=== PATIENT | male | born 1955 | race Caucasian/White ===

== ENCOUNTER 2022-03-08 10:28 | Outpatient (REF) | payer OTHER, SELFPAY ==
--- NOTE | ~2022-03-08 | XR_ITS ---
EXAMINATION: XR SINUSES CLINICAL INFORMATION: Chronic sinus issues. Allergic rhinitis. COMPARISON: None TECHNIQUE: 3 views of the sinuses were obtained. FINDINGS: There is complete opacification of left maxillary and mild opacification of left frontal sinus. The rest of the paranasal sinus and mastoid air cells are well aerated. No bony abnormalities seen involving the sinuses or the orbits. XR/XR sinus min 3V IMPRESSION: Chronic left frontal and maxillary sinus inflammatory changes.
[2022-03-08 12:38] LABS: PSA,Total (Free>4and<10) 3.63 ng/mL (0.00-4.00)
== END 2022-03-08 10:29 | disposition home or self-care (01) ==
LOC: HO.XRAY 10:28
PROVIDERS: PCP Internal Medicine; Visit Provider Nurse Practitioner Family
DX: J30.9 Allergic rhinitis, unspecified (principal); Z12.5 Encounter for screening for malignant neoplasm of prostate
CPT/HCPCS: 36415; 70220; 84153

== ENCOUNTER 2022-05-16 07:10 | Outpatient (REF) | payer OTHER, SELFPAY ==
--- NOTE | ~2022-05-16 | CT_ITS ---
EXAMINATION: CT SINUS WITHOUT CONTRAST CLINICAL INFORMATION: Acute recurrent sinusitis. COMPARISON: X-ray sinuses 03/08/2022. TECHNIQUE: Axial 2 mm thin and reformatted 2 mm thin sagittal and coronal images of sinuses were obtained without contrast. This CT examination was performed using dose optimization techniques as appropriate, variously including the following: *Automated exposure control *Adjustment of mA and/or kV according to patient size (this includes techniques or standardized protocols for targeted exams where dose is matched to indication/reason for exam; i.e. extremities or head) *Use of iterative reconstruction technique DLP: 99 mGy-cm FINDINGS: There is complete opacification of left maxillary sinus. There is minimal mucoperiosteal thickening left anterior ethmoid and bilateral frontal sinuses. Right ethmoid and the sphenoid sinuses are aerated and clear. There is complete obliteration of left ostiomeatal complex from mucoperiosteal thickening. The left frontoethmoidal recess is obliterated from mucoperiosteal thickening. The right ostiomeatal complex and frontoethmoidal recess, drainage pathways are widely patent. The bony sinus amaya are intact. Visualized maxillofacial and nasal bones are normal. Bilateral optic globe, optic nerve and intraorbital soft tissues appear normal. The bony orbits are intact. There is minimal deviation of nasal septum to the left with a bony spur. The nasal cavity and nasopharyngeal airway is widely patent. Bilateral TM joints and the visualized mandible appears unremarkable. CT/CT sinus wo con IMPRESSION: Chronic left maxillary, left anterior ethmoid and bilateral frontal sinus inflammatory changes. There is obstructed left ostiomeatal and frontoethmoidal recess drainage pathways. No bony abnormality seen involving the sinuses.
== END 2022-05-16 07:11 | disposition home or self-care (01) ==
LOC: HO.CT 07:10
PROVIDERS: PCP Internal Medicine; Visit Provider Otolaryngology
DX: J01.91 Acute recurrent sinusitis, unspecified (principal); I33.0 Acute and subacute infective endocarditis
CPT/HCPCS: 70486

== ENCOUNTER 2022-11-06 07:36 | Outpatient (REF) | payer OTHER, SELFPAY ==
[2022-11-06 07:43] LABS: MANUAL DIFF FLAG NO
[2022-11-06 08:31] LABS: Basophils Absolute Auto 0.1 X10*3/uL (0.0-0.2); Basophils Percent Auto 0.7 % (0-2); Eosinophils Absolute Auto 0.4 X10*3/uL (0.0-0.4); Eosinophils Percent Auto 5.2 % (0-4); Hematocrit 39.5 % (42.0-52.0); Hemoglobin 13.5 g/dl (14.0-18.0); Imm Gran Abs Auto 0.04 X10*3/uL (0.00-0.03); Imm Gran Pct Auto 0.5 % (0.0-0.4); Lymphocytes Absolute Auto 2.6 X10*3/uL (1.2-4.9); Lymphocytes Percent Auto 35.8 % (20-40); Mean Corpuscular HGB Conc 34.2 g/dl (31.0-36.0); Mean Corpuscular Hemoglobin 32.1 pg (27.0-33.0); Mean Corpuscular Volume 93.8 fL (80.0-98.0); Mean Platelet Volume 9.5 fL (9.4-12.4); Monocytes Absolute Auto 0.9 X10*3/uL (0.1-1.2); Monocytes Percent Auto 12.1 % (2-11); Neutrophils Absolute Auto 3.3 x10*3/uL (2.0-8.3); Neutrophils Percent Auto 45.7 % (45-73); Platelet Count 206 X10*3/uL (160-400); Red Blood Count 4.21 X10*6/uL (4.60-5.80); Red Cell Distribution Width 12.2 % (11.0-16.0); White Blood Count 7.3 X10*3/uL (4.8-10.8)
[2022-11-06 09:09] LABS: Alanine Aminotransferase 25 U/L (0-40); Albumin Level 4.4 g/dL (3.5-5.0); Alkaline Phosphatase 64 U/L (39-117); Anion Gap 12 (12-20); Aspartate Amino Transferase 27 U/L (5-37); Bilirubin Total 1.5 mg/dL (0.0-1.0); Blood Urea Nitrogen 12 mg/dL (9-16); Calcium 9.6 mg/dL (8.4-10.2); Carbon Dioxide 25 mmol/L (22-29); Chloride 102 mmol/L (96-108); Cholesterol 243 mg/dL; Estimated Glomerular Filt Rate > 60; Glucose Fasting 83 mg/dL (60-99); HDL Cholesterol 67 mg/dL; LDL Cholesterol Calculated 156 mg/dl; Potassium 4.4 mmol/L (3.3-5.1); Sodium 135 mmol/L (135-145); Total Protein 7.6 g/dL (6.5-8.0); Triglycerides 104 mg/dL
[2022-11-06 09:27] LABS: Prostate Specific Antigen Scr 5.02 ng/mL (<0.05-4.0); Thyroid Stimulating Hormone 1.03 uIU/mL (0.32-4.0)
== END 2022-11-06 07:37 | disposition home or self-care (01) ==
LOC: HO.LAB 07:36
PROVIDERS: PCP Internal Medicine; Visit Provider Internal Medicine
DX: Z00.00 Encounter for general adult medical examination without abnormal findings (principal); Z12.5 Encounter for screening for malignant neoplasm of prostate; Z13.0 Encounter for screening for diseases of the blood and blood-forming organs and certain disorders involving the immune mechanism; E03.9 Hypothyroidism, unspecified; I10 Essential (primary) hypertension; E78.5 Hyperlipidemia, unspecified
CPT/HCPCS: 36415; 80053; 80061; 84153; 84443; 85025

== ENCOUNTER 2022-12-04 10:45 | Outpatient (REF) | payer OTHER, SELFPAY ==
--- NOTE | ~2022-12-04 | XR_ITS ---
EXAMINATION: XR CHEST CLINICAL INFORMATION: Cough. COMPARISON: None TECHNIQUE: 2 views of the chest were obtained. FINDINGS: No significant abnormality is noted involving the heart, lungs, mediastinum, bony thorax or soft tissues. XR/XR chest 2V IMPRESSION: Unremarkable chest examination.
== END 2022-12-04 10:46 | disposition home or self-care (01) ==
LOC: HO.HMGCX 10:45
PROVIDERS: PCP Internal Medicine; Visit Provider Internal Medicine
DX: R05.9 Cough, unspecified (principal)
CPT/HCPCS: 71046

== ENCOUNTER 2023-09-19 13:51 | Outpatient (AMB) | payer MEDICARE, SELFPAY ==
--- NOTE | 2023-09-19 14:38 | MHC.PC.OV ---
Vital Signs 09/19/23 14:41 Height 5 ft 10 in Weight 200 lb BMI 28.7 BP 120/80 Blood Pressure Location Lt brachial Position Sitting Pulse 61 Pulse Source Pulse Oximeter Pulse Oximetry (%) 98 Oxygen Delivery Method Room Air Intake Visit Reasons: Est Care/ HTN, Hypothyroidism Intake Note: Patient here to establish care. Allergies amlodipine Allergy (Severe, Verified 09/19/23 14:43) swelling Medication List - Last Reconciled 09/19/23 by MEL Rose hydrochlorothiazide 12.5 mg PO DAILY levothyroxine 150 mcg PO DAILY lisinopril 20 mg PO DAILY Tobacco use date assessed: 09/19/23 Fall risk assessment: No Falls in past year Last assessed Fall Risk: 09/19/23 Dental Screening Dental Screen Date: 09/19/23 Did you have a dental visit in the last 12 months?: Yes Did you have a dental problem in the last 6 months where you did not have access to dental care?: No Was dental information given to patient?: Patient has dentist HPI Est Care/ HTN, Hypothyroidism HPI Details New pt is here to establish care. HTN: Blood pressure is stable, managed with hydrochlorothiazide 12.5mg and lisinopril 20mg. Denies chest pain, shortness of breath, headache, dizziness, and blurred vision. Hypothyroid: Pt is currently taking levothyroxine 150mcg. Will order labs. Due for PSA, hx of elevation, will reorder. Pt does report nocturia, stating that he gets up every 3-4 hours to urinate. Prostate does feel enlarged today, will refer to urology. Denies weak stream, dribbling with urination, and incomplete bladder emptying. [facility] Medical History (Updated 09/19/23 @ 15:12 by MEL Rose) Hypertension Surgical History No pertinent past surgical history Family History Father No problems noted. Mother Gastric cancer Sister No problems noted. Son No problems noted. Son No problems noted. Daughter No problems noted. Brother No problems noted. Brother No problems noted. Brother No problems noted. Brother No problems noted. Social History Housing: House Alcohol intake: never Patient Tobacco Use Status: Never used Tobacco e-Cigarette/Vaping Use: Never Used Second Hand Smoke Exposure: No service: No Current occupational status: employed Cognitive needs: No Hearing needs: No Vision needs: No Questionnaire PHQ-9 Over the last 2 weeks, how often have you been bothered by any of the following problems? 1. Little interest or pleasure in doing things: not at all 2. Feeling down, depressed, or hopeless: not at all 3. Trouble falling or staying asleep, or sleeping too much: not at all 4. Feeling tired or having little energy: not at all 5. Poor appetite or overeating: not at all 6. Feeling bad about yourself - or that you are a failure or have let yourself or your family down: not at all 7. Trouble concentrating on things, such as reading the newspaper or watching television: not at all 8. Moving or speaking so slowly that other people could have noticed. Or the opposite - being so fidgety or restless that you have been moving around a lot more than usual: not at all 9. Thoughts that you would be better off or of hurting yourself in some way: not at all Total score: 0 Depression Screening Interpretation: Negative Depression Screening Done: Yes 13512 - PHQ-9 Billing: Yes Source: Developed by Drs. Sundar Wright, Natalee Wolfe, Artemio Reynoso and colleagues, with an educational som from [employer]. Thrive Questionnaire Date Thrive assessed: 09/19/23 I am a: Patient What is your living situation today?: I have a steady place to live Within the past 12 months, did the food you bought not last and you didn't have the money to get more?: Never true Within the past 12 months, did you worry whether your food would run out before you got money to buy more?: Never true Do you have trouble paying for medicines?: No Do you have trouble getting transportation to medical appointments?: No Do you have trouble paying your heating and electricity bill?: No Do you have trouble taking care of your child, family member or friend?: No Do you have trouble with day-to-day activities such as bathing, preparing meals, shopping, managing finances, etc.?: No Are you currently unemployed and looking for a job?: No Are you interested in more education?: No IGGY-7 AMB Questionnaire IGGY-7 Date IGGY - 7 assessed: 09/19/23 Feeling nervous, anxious, or on edge: 0 = Not at all Not being able to stop or control worryin = Not at all Worrying too much about different things: 0 = Not at all Trouble relaxin = Not at all Being so restless that it is hard to sit still: 0 = Not at all Becoming easily annoyed or irritable: 0 = Not at all Feeling afraid as if something awful might happen: 0 = Not at all Total IGGY-7 score (0-4 normal; 5-9 mild; 10-14 moderate; 15-21 severe): 0 Source: Developed by Drs. Sundar Wright, Natalee Wolfe, Artemio Reynoso and colleagues, with an educational som from [employer]. IGGY-7 Assessment Billing IGGY-7 Assessment Tool: IGGY-7 Assessment 47596 Review of Systems Const Reports as per HPI Physical exam (Primary Care) Vital Signs: Last Vital Signs Pulse 61 09/19/23 14:41 BP 120/80 09/19/23 14:41 Pulse Ox 98 09/19/23 14:41 Oxygen Delivery Method Room Air 09/19/23 14:41 BMI result Body Mass Index 28.7 Tobacco/Smoking Status: Tobacco use Status Tobacco use date assessed 09/19/23 09/19/23 14:47 Patient Tobacco Use Status Never used Tobacco 09/19/23 14:39 e-Cigarette/Vaping Use Never Used 09/19/23 14:39 PHQ-9: PHQ-9 Score PHQ-9: Total score 0 09/19/23 15:04 Depression Screening Interpretation: Negative Thrive Assessment: Date of Thrive Assessment Date Thrive assessed 09/19/23 09/19/23 14:52 Const General: cooperative Orientation/consciousness: patient oriented x3 Neck Neck: Yes normal visual inspection Resp Effort & Inspection: normal respiratory effort Auscultation: clear to auscultation bilaterally Cardio Rate: regular rate Rhythm: regular rhythm Heart sounds: S1 normal heart sound present and S2 normal heart sound present Other: AVINASH: prostate enlarged and indurated, no nodules palpated, smooth central groove Neuro General: patient oriented x3 Extrem Right lower extremity: no edema Left lower extremity: no edema Psych Appearance: grossly normal Mental Status: mental status grossly normal Speech and movement: Normal speech and movement present Affect: normal affect Attitude: cooperative Thought process: Normal thought process present Thought content: Normal thought content present Insight: Good insight present (Psych) Judgement: Good judgement present (Psych) Assessment and Plan Assessment & Plan (1) Hypertension: Code(s): I10 - Essential (primary) hypertension Plan: Labs ordered, continue current meds (2) Hypothyroidism: Code(s): E03.9 - Hypothyroidism, unspecified Plan: Labs ordered, continue current med (3) Elevated PSA: Code(s): R97.20 - Elevated prostate specific antigen [PSA] Plan: PSA ordered (4) Enlarged prostate: Code(s): N40.0 - Benign prostatic hyperplasia without lower urinary tract symptoms Plan: Referred to urology Plan The patient agreed to the use of a medical and scientific illustrator for this encounter. Scribed for ROSA MARIA Roman- by Martha Johnson medical and scientific illustrator, on 09/19/2023 at 15:00 EST. Orders: Orders Comprehensive [place]. Panel Fast Today E03.9 - Hypothyroidism, unspecified, I10 - Essential (primary) hypertension UA CC w/rflx Micro + Cult Today E03.9 - Hypothyroidism, unspecified, I10 - Essential (primary) hypertension Prostate Specific Antigen Scr Today R97.20 - Elevated prostate specific antigen [PSA] Complete Blood Count Auto Diff Today E03.9 - Hypothyroidism, unspecified, I10 - Essential (primary) hypertension TSH reflex Free T4 Today E03.9 - Hypothyroidism, unspecified, I10 - Essential (primary) hypertension Lipid Panel Today E03.9 - Hypothyroidism, unspecified, I10 - Essential (primary) hypertension Referrals Urology Referral N40.0 - Benign prostatic hyperplasia without lower urinary tract symptoms Coding Level of Care Code New Pt Level 3 (52589) Diagnoses Hypertension I10 Hypothyroidism E03.9 Elevated PSA R97.20 Enlarged prostate N40.0 Additional Codes IGGY-7 Assessment Billing - IGGY-7 Assessment Tool: IGGY-7 Assessment 21335 ([id number])
[2023-09-19 14:41] VITALS: BP 120/80; PULSE 61; O2SAT 98; BMI 28.7
== END 2023-09-19 15:22 | disposition home or self-care (01) ==
PROVIDERS: PCP Internal Medicine; Visit Provider Nurse Practitioner Family
DX: I10 Essential (primary) hypertension (principal); E03.9 Hypothyroidism, unspecified; R97.20 Elevated prostate specific antigen [PSA]; N40.0 Benign prostatic hyperplasia without lower urinary tract symptoms
CPT/HCPCS: 99203

== ENCOUNTER 2023-10-03 08:04 | Outpatient (REF) | payer MEDICARE, SELFPAY ==
[2023-10-03 11:34] LABS: MANUAL DIFF FLAG NO
[2023-10-03 11:36] LABS: Appearance Urine Clear; Color Urine Yellow; Glucose Urine UA Negative (Negative); Leukocyte Esterase Urine Negative (Negative); Nitrite Urine Negative (Negative); PH 6.5 (5.0-9.0); UMIC TRIGGER UACC YES; Urine Blood Small (1+) (Negative); Urine Ketones Negative (Negative); Urine Protein Negative (Neg-Trace)
[2023-10-03 11:41] LABS: Basophils Absolute Auto 0.1 X10*3/uL (0.0-0.2); Basophils Percent Auto 0.7 % (0-2); Eosinophils Absolute Auto 0.3 X10*3/uL (0.0-0.4); Eosinophils Percent Auto 4.2 % (0-4); Hematocrit 39.6 % (42.0-52.0); Hemoglobin 13.2 g/dl (14.0-18.0); Imm Gran Abs Auto 0.04 X10*3/uL (0.00-0.03); Imm Gran Pct Auto 0.6 % (0.0-0.4); Lymphocytes Absolute Auto 2.4 X10*3/uL (1.2-4.9); Lymphocytes Percent Auto 34.5 % (20-40); Mean Corpuscular HGB Conc 33.3 g/dl (31.0-36.0); Mean Corpuscular Hemoglobin 31.6 pg (27.0-33.0); Mean Corpuscular Volume 94.7 fL (80.0-98.0); Mean Platelet Volume 9.9 fL (9.4-12.4); Monocytes Absolute Auto 0.7 X10*3/uL (0.1-1.2); Monocytes Percent Auto 10.2 % (2-11); Neutrophils Absolute Auto 3.4 x10*3/uL (2.0-8.3); Neutrophils Percent Auto 49.8 % (45-73); Platelet Count 214 X10*3/uL (160-400); Red Blood Count 4.18 X10*6/uL (4.60-5.80); Red Cell Distribution Width 12.4 % (11.0-16.0); White Blood Count 6.9 X10*3/uL (4.8-10.8)
[2023-10-03 12:09] LABS: Alanine Aminotransferase 23 U/L (0-40); Albumin Level 4.1 g/dL (3.5-5.0); Alkaline Phosphatase 62 U/L (39-117); Anion Gap 15 (12-20); Aspartate Amino Transferase 25 U/L (5-37); Bilirubin Total 1.2 mg/dL (0.0-1.0); Blood Urea Nitrogen 14 mg/dL (9-16); Calcium 9.2 mg/dL (8.4-10.2); Carbon Dioxide 25 mmol/L (22-29); Chloride 102 mmol/L (96-108); Cholesterol 223 mg/dL (<200); Estimated Glomerular Filt Rate > 60; Glucose Fasting 85 mg/dL (60-99); HDL Cholesterol 64 mg/dL (>40); LDL Cholesterol Calculated 133 mg/dL (<100); Potassium 4.1 mmol/L (3.3-5.1); Sodium 138 mmol/L (135-145); Total Protein 7.6 g/dL (6.5-8.0); Triglycerides 130 mg/dL (<150)
[2023-10-03 12:12] LABS: Bacteria Urine None Seen (None Seen); Hyaline Casts Urine 0-2 /LPF (0-2); Squamous Epithelial Cell Urine 0-2 /HPF (0-2); WBC Urine 0-5 /HPF (0-5)
[2023-10-03 12:16] LABS: TSH reflex Free T4 2.07 uIU/mL (0.32-4.0)
[2023-10-03 12:18] LABS: Prostate Specific Antigen Scr 4.71 ng/mL (<0.05-4.0)
== END 2023-10-03 08:05 | disposition home or self-care (01) ==
LOC: HO.HMGCLDS 08:04
PROVIDERS: PCP Nurse Practitioner Family; Visit Provider Nurse Practitioner Family
DX: I10 Essential (primary) hypertension (principal); E03.9 Hypothyroidism, unspecified; R97.20 Elevated prostate specific antigen [PSA]; Z12.5 Encounter for screening for malignant neoplasm of prostate
CPT/HCPCS: 36415; 80053; 80061; 81001; 84153; 84443; 85025

== ENCOUNTER 2023-11-01 08:00 | Outpatient (REF) | payer MEDICARE, SELFPAY ==
[2023-11-04 08:25] LABS: FIT Int Ctl YES; FIT1 NEGATIVE (NEGATIVE); FIT2 NEGATIVE (NEGATIVE)
[2023-11-04 08:26] LABS: FIT Lot M01203
== END 2023-11-01 08:01 | disposition home or self-care (01) ==
LOC: HO.HMGCLNP 08:00
PROVIDERS: Internal Medicine; PCP Nurse Practitioner Family; Visit Provider Nurse Practitioner Family
DX: R19.5 Other fecal abnormalities (principal)
CPT/HCPCS: 82274

== ENCOUNTER 2023-11-20 08:54 | Outpatient (AMB) | payer MEDICARE, SELFPAY ==
--- NOTE | 2023-11-20 09:05 | MHC.OFFVIS ---
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 Intake Note: New Patient presents for initial visit for BPH, Nocturia, and Elevated PSA Previous PSA: 2022-5.0, 2023-4.7 Urology Medications: none Blood Thinner: none Patient stated he is been having blood in the urine for more than 20 years PVR: 23ml Patient is a non smoker [employer] Required: No Accompanied by: Self / Same As Patient Allergies amlodipine Allergy (Severe, Verified 11/20/23 09:48) swelling Medication List - Last Reconciled 11/20/23 by ROSA MARIA Anderson- atorvastatin 10 mg PO BEDTIME 30 days hydrochlorothiazide 12.5 mg PO DAILY levothyroxine 150 mcg PO DAILY lisinopril 20 mg PO DAILY HPI HPI Comments History of Present Illness Details José Miguel is a very pleasant 68-year-old male patient of Dr. Bowen. He has a past medical history of hypertension. He presents to the office today as a new patient for elevated PSA. In discussion with the patient today reports following up with his PCP at which time recommendations were made for urology referral due to elevated PSA. These results reviewed with the patient today. 03/15--3.6 11/16--5.0 10/17--4.7 When asked he denies any urinary issues or concerns. He reports nocturia 2 times per night. However does not find this bothersome. Discussed at length potential causes for elevated PSA. Discussed obtaining redraw of PSA as well as retroperitoneal ultrasound for further assessment evaluation. In office urinalysis results reviewed with the patient today. 3+ microscopic hematuria however patient reports having previously followed up with Dr. Larson and undergoing workup for microscopic hematuria with no abnormal findings. He denies any previous smoking history and or workplace chemical exposure. PVR 23 mL. When asked he denies urinary urgency, urinary frequency, incontinence, nocturia, hematuria, dysuria, foul smelling urine, changes to urinary stream, flank pain, fever, and or chills. He is happy with his current voiding parameters. 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 AVINASH offered however patient had AVINASH with PCP and known nodules were noted the per patient. He reports PCP discussed enlarged prostate. He otherwise offers no other issues or concerns at this time. [facility] Medical History Hypertension Surgical History No pertinent past surgical history Family History Father No problems noted. Mother Gastric cancer Sister No problems noted. Son No problems noted. Son No problems noted. Daughter No problems noted. Brother No problems noted. Brother No problems noted. Brother No problems noted. Brother No problems noted. Social History Housing: House Alcohol intake: never Patient Tobacco Use Status: Never used Tobacco e-Cigarette/Vaping Use: Never Used Second Hand Smoke Exposure: No service: No Current occupational status: employed Cognitive needs: No Hearing needs: No Vision needs: No Review of Systems Const All systems reviewed & are unremarkable except as noted in HPI and below Physical Exam Const General: cooperative, healthy appearing, comfortable, no acute distress, well developed, alert and awake Orientation/consciousness: patient oriented x3 Limitations: no limitations HEENT Head: Yes normal to inspection, Yes normocephalic and Yes atraumatic Ears: hearing grossly normal bilaterally Eyes General: appearance normal, both eyes and all related structures Neck Neck: Yes normal visual inspection and Yes trachea midline Chest Chest palpation & inspection: normal inspection of the chest Resp Effort & Inspection: normal respiratory effort and able to speak in complete sentences Cardio Rate: regular rate GI Inspection: Yes normal to inspection General: Yes no CVA tenderness Back/Spine/Pelvis Back: no CVA tenderness Skin General skin exam: no rashes or lesions noted Neuro General: patient oriented x3 Extrem General: Yes normal to inspection Psych Appearance: grossly normal and well kempt Mental Status: mental status grossly normal Speech and movement: Normal speech and movement present and Clear speech present Affect: normal affect Attitude: cooperative Thought process: Normal thought process present Thought content: Normal thought content present Insight: Fair insight present (Psych) Judgement: Fair judgement present (Psych) Office Procedures Post Void Residual Post Residual Void Post Void Residual (PVR): 23 15098-Yosd Void Residual by ultrasound Results AMB Urinalysis, Automated UA Leukoctes 0 Seth/uL Last Edit by Roslyn Mejia CMA on 11/20/23 09:25 UA Nitrite Negative Last Edit by [facility], [facility] on 11/20/23 09:25 UA Urobilinogen 0.2 mg/dL Last Edit by [facility], [facility] on 11/20/23 09:25 UA Protein 0 mg/dL Last Edit by [facility], [facility] on 11/20/23 09:25 UA pH 6.0 Last Edit by [facility], [facility] on 11/20/23 09:25 UA Blood 200 Poncho/uL Last Edit by [facility], [facility] on 11/20/23 09:25 UA Specific [place] 1.015 Last Edit by [facility], [facility] on 11/20/23 09:25 UA Ketone Negative Last Edit by [facility], [facility] on 11/20/23 09:25 UA Bilirubin 0 mg/dL Last Edit by [facility], [facility] on 11/20/23 09:25 UA Glucose 0 mg/dL Last Edit by [facility], [facility] on 11/20/23 09:25 Results Reviewed Results Reviewed: Laboratory Last Values Urine pH (Auto) 6.0 11/20/23 09:09 Specific [place] (Auto) 1.015 11/20/23 09:09 Urine Protein (Auto) 0 mg/dL 11/20/23 09:09 Glucose (UA)(Auto) 0 mg/dL 11/20/23 09:09 Urine Ketones (Auto) Negative 11/20/23 09:09 Urine Blood (Auto) 200 Poncho/uL 11/20/23 09:09 Urine Nitrite (Auto) Negative 11/20/23 09:09 Urine Bilirubin (Auto) 0 mg/dL 11/20/23 09:09 Urine Urobilinogen (Auto) 0.2 mg/dL 11/20/23 09:09 Leukocyte Esterase (Auto) 0 Seth/uL 11/20/23 09:09 Assessment & Plan Assessment & Plan (1) Elevated PSA: Code(s): R97.20 - Elevated prostate specific antigen [PSA] (2) Microscopic hematuria: Code(s): R31.29 - Other microscopic hematuria Plan In office urinalysis results reviewed with the patient today. PVR 23 mL. Discussed at length potential causes of elevated PSA. Discussed at length potential causes of microscopic hematuria Will obtain retroperitoneal ultrasound for further assessment evaluation. Will obtain redraw of PSA with no sex the night before, no coffee morning of, and no heavy lifting 1-2 days prior to lab draw. He currently denies any bothersome urinary issues or concerns. Reports be happy with current voiding parameters. Follow-up in 1-2 months with imaging and lab to be completed prior; or sooner with any issues, concerns, and or questions. Orders: Orders AMB Urinalysis Automated Today R33.9 - Retention of urine, unspecified AMB Post Void Residual by ultrasound Today R33.9 - Retention of urine, unspecified US retroperitoneal comp Today R31.29 - Other microscopic hematuria, R97.20 - Elevated prostate specific antigen [PSA] Urine Cytology Today N39.0 - Urinary tract infection, site not specified, R31.29 - Other microscopic hematuria PSA,Total (Free>4and<10) Today R97.20 - Elevated prostate specific antigen [PSA] Patient Instructions: The patient had an opportunity to ask questions regarding the treatment plan. All questions were answered. Physical exam, labs, and imaging were discussed and reviewed in detail. As well as risks, benefits, and discussion of treatment choices. No major barriers to understanding were identified. The patient expressed understanding and agreement with the above treatment plan. The patient was made aware they should contact our office by phone for worsening of their current condition, the appearance of new symptoms, or with any questions or concerns. Compliance is encouraged with any medications and follow up testing that is ordered. It is a privilege to be allowed the opportunity to participate in? your urological care.? Again, if you have any questions or concerns If you have any questions or concerns please do not hesitate to contact me. The office is [phone]. This note is constructed using voice recognition software. While every effort has been made to ensure accuracy wireless technician errors may have been included. Yours sincerely, MEL Anderson Coding Level of Care Code New Pt Level 3 (78184) Diagnoses Elevated PSA R97.20 Microscopic hematuria R31.29 CPT Codes Post Residual Void - PVR CPT Code: 06692-[place] Void Residual by ultrasound ([id number])
== END 2023-11-20 09:47 | disposition home or self-care (01) ==
PROVIDERS: PCP Nurse Practitioner Family; Visit Provider Nurse Practitioner Family
DX: R97.20 Elevated prostate specific antigen [PSA] (principal); R31.29 Other microscopic hematuria
CPT/HCPCS: 99203

== ENCOUNTER 2023-11-20 08:54 | Outpatient (REF) | payer MEDICARE, SELFPAY ==
[2023-11-20 17:18] LABS: Urine Cytology See Pathology rpt
== END 2023-11-20 08:55 | disposition home or self-care (01) ==
LOC: HO.LAB 08:54
PROVIDERS: PCP Nurse Practitioner Family; Visit Provider Nurse Practitioner Family
DX: R31.29 Other microscopic hematuria (principal); N39.0 Urinary tract infection, site not specified; N40.0 Benign prostatic hyperplasia without lower urinary tract symptoms; R31.9 Hematuria, unspecified; R97.20 Elevated prostate specific antigen [PSA]; R33.9 Retention of urine, unspecified; Z79.899 Other long term (current) drug therapy
CPT/HCPCS: 51798; 81003; 88112; 99202

== ENCOUNTER 2023-12-05 09:39 | Outpatient (REF) | payer MEDICARE, SELFPAY ==
[2023-12-05 11:27] LABS: MANUAL DIFF FLAG NO
[2023-12-05 11:40] LABS: Basophils Percent Auto 0.6 % (0-2); Eosinophils Absolute Auto 0.3 X10*3/uL (0.0-0.4); Eosinophils Percent Auto 3.5 % (0-4); Hematocrit 38.1 % (42.0-52.0); Hemoglobin 13.1 g/dl (14.0-18.0); Imm Gran Abs Auto 0.03 X10*3/uL (0.00-0.03); Imm Gran Pct Auto 0.4 % (0.0-0.4); Lymphocytes Absolute Auto 2.2 X10*3/uL (1.2-4.9); Lymphocytes Percent Auto 30.9 % (20-40); Mean Corpuscular HGB Conc 34.4 g/dl (31.0-36.0); Mean Corpuscular Hemoglobin 32.3 pg (27.0-33.0); Mean Corpuscular Volume 94.1 fL (80.0-98.0); Mean Platelet Volume 9.7 fL (9.4-12.4); Monocytes Absolute Auto 0.7 X10*3/uL (0.1-1.2); Monocytes Percent Auto 10.1 % (2-11); Neutrophils Absolute Auto 3.9 x10*3/uL (2.0-8.3); Neutrophils Percent Auto 54.5 % (45-73); Platelet Count 227 X10*3/uL (160-400); Red Blood Count 4.05 X10*6/uL (4.60-5.80); Red Cell Distribution Width 12.2 % (11.0-16.0); White Blood Count 7.1 X10*3/uL (4.8-10.8)
[2023-12-05 12:31] LABS: Cholesterol 174 mg/dL (<200); HDL Cholesterol 67 mg/dL (>40); Iron 113 mcg/dL (45-160); LDL Cholesterol Calculated 86 mg/dL (<100); Percent Iron Saturation 36 % (15-50); Total Iron Binding Capacity 315 mcg/dL (228-428); Triglycerides 109 mg/dL (<150); Unsaturated Iron Binding 202 ug/dL
[2023-12-05 12:32] LABS: Ferritin 488 ng/mL (20-250)
[2023-12-05 12:44] LABS: PSA,Total (Free>4and<10) 5.32 ng/mL (0.00-4.00)
[2023-12-05 13:59] LABS: Appearance Urine Clear; Color Urine Yellow; Glucose Urine UA Negative (Negative); Leukocyte Esterase Urine Negative (Negative); Nitrite Urine Negative (Negative); UMIC TRIGGER UACC YES; Urine Blood Small (1+) (Negative); Urine Ketones Negative (Negative); Urine Protein Negative (Neg-Trace)
[2023-12-05 14:07] LABS: Bacteria Urine None Seen (None Seen); Hyaline Casts Urine 0-2 /LPF (0-2); Squamous Epithelial Cell Urine 0-2 /HPF (0-2); WBC Urine 0-5 /HPF (0-5)
[2023-12-05 14:58] LABS: Folate 13.5 ng/mL (> or = 4.0); Vitamin B12 426 pg/mL (200-900)
[2023-12-06 11:08] LABS: Free Prostate Spec Ag 0.8 ng/mL; Percent Free Prostate Spec Ag 15 % (calc) (>25); Prostate Specific Ag Total 5.5 ng/mL (< OR = 4.0)
[2023-12-06 14:04] LABS: Hematocrit 37.8 % (38.5-50.0); Hemoglobin 13.2 g/dL (13.2-17.1); MCH 32.9 pg (27.0-33.0); MCV 94.3 fL (80.0-100.0); RBC 4.01 Million/uL (4.20-5.80)
== END 2023-12-05 09:40 | disposition home or self-care (01) ==
LOC: HO.HMGCLDS 09:39
PROVIDERS: Nurse Practitioner Family; PCP Nurse Practitioner Family; Visit Provider Nurse Practitioner Family
DX: E78.5 Hyperlipidemia, unspecified (principal); D64.9 Anemia, unspecified; R97.20 Elevated prostate specific antigen [PSA]; I10 Essential (primary) hypertension; E03.9 Hypothyroidism, unspecified; R05.9 Cough, unspecified; Z12.5 Encounter for screening for malignant neoplasm of prostate
CPT/HCPCS: 36415; 80061; 81001; 82607; 82728; 82746; 83020; 83540; 84153; 84154; 85014; 85018; 85025; 85041

== ENCOUNTER 2024-01-14 09:51 | Outpatient (REF) | payer MEDICARE, SELFPAY ==
--- NOTE | ~2024-01-14 | US_ITS ---
EXAMINATION: US RETROPERITONEAL COMPLETE (RENAL) CLINICAL INFORMATION: Elevated prostate specific antigen (PSA). COMPARISON: CT abdomen and pelvis 07/28/2019. Renal ultrasound 05/22/2019. TECHNIQUE: Real-time imaging of the kidneys and bladder. FINDINGS: RIGHT KIDNEY: 10.2 x 6.1 x 5.9 cm (SAG x AP x TRV). The kidney is normal in size, contour, and echogenicity. Renal cortical thickness is normal. No calculi or focal parenchymal lesions. No hydronephrosis. There is a perihilar left renal artery branching pattern. LEFT KIDNEY: 10.2 x 5.8 x 5.1 cm (SAG x AP x TRV). The kidney is normal in size, contour, and echogenicity. Renal cortical thickness is normal. No calculi or focal parenchymal lesions. No hydronephrosis. BLADDER: Well distended. Bilateral ureteral jets are demonstrated. Prevoid bladder volume is 175 mL. Postvoid bladder volume is 70 mL. Mild bladder wall trabeculations are noted. OTHER: Prostate dimensions are 3.5 x 4.0 x 3.5 cm (volume 25.6 mL). US/US retroperitoneal comp IMPRESSION: 1. Unremarkable ultrasound appearance of the kidneys. 2. There is mild bladder wall hypertrophy. 3. There is a borderline increased postvoid residual volume.
== END 2024-01-14 09:52 | disposition home or self-care (01) ==
LOC: HO.HMGCX 09:51
PROVIDERS: PCP Nurse Practitioner Family; Visit Provider Nurse Practitioner Family
DX: R31.29 Other microscopic hematuria (principal); R97.20 Elevated prostate specific antigen [PSA]
CPT/HCPCS: 76770

== ENCOUNTER 2024-01-22 09:17 | Outpatient (AMB) | payer MEDICARE, SELFPAY ==
--- NOTE | 2024-01-22 09:46 | MHC.OFFVIS ---
Intake Visit Reasons: 2m/US/PSA(set) Intake Note: Patient presents for follow up visit for Elevated PSA and psa results PSA: 5.5 Urology Medications: none Blood Thinner: none Batch Or Continuous Still Operator Required: No Accompanied by: Self / Same As Patient Allergies amlodipine Allergy (Severe, Verified 01/22/24 10:03) swelling Medication List - Last Reconciled 01/22/24 by ROSA MARIA Anderson- atorvastatin 10 mg PO BEDTIME finasteride 5 mg PO DAILY 90 days hydrochlorothiazide 12.5 mg PO DAILY levothyroxine 150 mcg PO DAILY lisinopril 20 mg PO DAILY HPI Comments Details: José Miguel is a very pleasant 68-year-old male patient of Dr. Bowen. He has a past medical history of hep C and hypertension. He presents to the office today for follow-up. Of note, patient was seen approximately 2 months ago as a new patient for elevated PSA at which time a redraw of PSA and retroperitoneal ultrasound were ordered for further assessment evaluation. These results were reviewed with the patient today. Bilateral kidneys with no hydronephrosis or lesions noted. The bladder is well distended. Bilateral ureteral jets are demonstrated. Pre void bladder volume is approximately 175 mL. Postvoid bladder volume is approximately 70 mL. Mild bladder wall trabeculations are noted. Prostate volume is approximately 26 mL. PSAs are as noted and trended below. 03/15 3.6, 11/16 5.0, 10/17 4.7, 12/15 5.5 % free PSA 15% PCPT risk calculator results reviewed with the patient today. 65% chance prostate biopsy is negative, 25% chance of low-grade prostate cancer, and 10% chance of high-grade prostate cancer. When asked he denies any urinary issues or concerns. He reports nocturia 2 times per night. However does not find this bothersome. Discussed at length potential causes for elevated PSA. In office urinalysis results reviewed with the patient today. 3+ microscopic hematuria however patient reports having previously followed up with Dr. Larson and undergoing workup for microscopic hematuria with no abnormal findings. Discussed urine cytology from last office visit 11/17 atypical urothelial cells. He denies any previous smoking history and or workplace chemical exposure. When asked he denies urinary urgency, urinary frequency, incontinence, nocturia, hematuria, dysuria, foul smelling urine, changes to urinary stream, flank pain, fever, and or chills. He is happy with his current voiding parameters. AVINASH offered however patient had AVINASH with PCP and known nodules were noted the per patient. He reports PCP discussed enlarged prostate. He otherwise offers no other issues or concerns at this time. [facility] Medical History Hepatitis C Hypertension Surgical History No pertinent past surgical history Family History Father No problems noted. Mother Gastric cancer Sister No problems noted. Son No problems noted. Son No problems noted. Daughter No problems noted. Brother No problems noted. Brother No problems noted. Brother No problems noted. Brother No problems noted. Social History Housing: House Alcohol intake: never Patient Tobacco Use Status: Never used Tobacco e-Cigarette/Vaping Use: Never Used Second Hand Smoke Exposure: No service: No Current occupational status: employed Cognitive needs: No Hearing needs: No Vision needs: No Review of Systems Const All systems reviewed & are unremarkable except as noted in HPI and below Physical Exam Const General: cooperative, healthy appearing, comfortable, no acute distress, well developed, alert and awake Orientation/consciousness: patient oriented x3 Limitations: no limitations HEENT Head: Yes normal to inspection, Yes normocephalic and Yes atraumatic Ears: hearing grossly normal bilaterally Eyes General: appearance normal, both eyes and all related structures Neck Neck: Yes normal visual inspection and Yes trachea midline Chest Chest palpation & inspection: normal inspection of the chest Resp Effort & Inspection: normal respiratory effort and able to speak in complete sentences Cardio Rate: regular rate GI Inspection: Yes normal to inspection General: Yes no CVA tenderness Back/Spine/Pelvis Back: no CVA tenderness Skin General skin exam: no rashes or lesions noted Neuro General: patient oriented x3 Extrem General: Yes normal to inspection Psych Appearance: grossly normal and well kempt Mental Status: mental status grossly normal Speech and movement: Normal speech and movement present and Clear speech present Affect: normal affect Attitude: cooperative Thought process: Normal thought process present Thought content: Normal thought content present Insight: Fair insight present (Psych) Judgement: Fair judgement present (Psych) Results AMB Urinalysis, Automated UA Leukoctes 0 Seth/uL Last Edit by Keyona Flores on 01/22/24 09:56 UA Nitrite Negative Last Edit by Keyona Flores on 01/22/24 09:56 UA Urobilinogen 0.2 mg/dL Last Edit by Keyona Flores on 01/22/24 09:56 UA Protein 0 mg/dL Last Edit by Keyona Flores on 01/22/24 09:56 UA pH 6.0 Last Edit by Keyona Flores on 01/22/24 09:56 UA Blood 80 [place]/uL Last Edit by Keyona Flores on 01/22/24 09:56 UA Specific [place] 1.015 Last Edit by Keyona Flores on 01/22/24 09:56 UA Ketone Negative Last Edit by Keyona Flores on 01/22/24 09:56 UA Bilirubin 0 mg/dL Last Edit by Keyona Flores on 01/22/24 09:56 UA Glucose 0 mg/dL Last Edit by Keyona Flores on 01/22/24 09:56 Results Reviewed Results Reviewed: Laboratory Last Values Urine pH (Auto) 6.0 01/22/24 09:55 Specific [place] (Auto) 1.015 01/22/24 09:55 Urine Protein (Auto) 0 mg/dL 01/22/24 09:55 Glucose (UA)(Auto) 0 mg/dL 01/22/24 09:55 Urine Ketones (Auto) Negative 01/22/24 09:55 Urine Blood (Auto) 80 [place]/uL 01/22/24 09:55 Urine Nitrite (Auto) Negative 01/22/24 09:55 Urine Bilirubin (Auto) 0 mg/dL 01/22/24 09:55 Urine Urobilinogen (Auto) 0.2 mg/dL 01/22/24 09:55 Leukocyte Esterase (Auto) 0 Seth/uL 01/22/24 09:55 Date of Service: 01/14/24 EXAMINATION: US RETROPERITONEAL COMPLETE (RENAL) FINDINGS: RIGHT KIDNEY: 10.2 x 6.1 x 5.9 cm (SAG x AP x TRV). The kidney is normal in size, contour, and echogenicity. Renal cortical thickness is normal. No calculi or focal parenchymal lesions. No hydronephrosis. There is a perihilar left renal artery branching pattern. LEFT KIDNEY: 10.2 x 5.8 x 5.1 cm (SAG x AP x TRV). The kidney is normal in size, contour, and echogenicity. Renal cortical thickness is normal. No calculi or focal parenchymal lesions. No hydronephrosis. BLADDER: Well distended. Bilateral ureteral jets are demonstrated. Prevoid bladder volume is 175 mL. Postvoid bladder volume is 70 mL. Mild bladder wall trabeculations are noted. OTHER: Prostate dimensions are 3.5 x 4.0 x 3.5 cm (volume 25.6 mL). IMPRESSION: 1. Unremarkable ultrasound appearance of the kidneys. 2. There is mild bladder wall hypertrophy. 3. There is a borderline increased postvoid residual volume. Assessment & Plan Assessment & Plan (1) Elevated PSA: Code(s): R97.20 - Elevated prostate specific antigen [PSA] Category: Medical (2) Microscopic hematuria: Code(s): R31.29 - Other microscopic hematuria Category: Medical (3) Bladder trabeculation: Code(s): N32.89 - Other specified disorders of bladder Category: Medical Plan In office urinalysis results reviewed with the patient today; as noted above. Previous urine cytology results reviewed with the patient today; as noted above. Recent retroperitoneal ultrasound results reviewed with the patient today; as noted above. Recent PSA results reviewed with the patient today; as noted above. Discussed at length potential causes of elevated PSA; discussed further treatment options with MRI of the prostate verses surveillance monitoring versus prostate biopsy verses trial finasteride; risks and benefits of these interventions were discussed at length. Discussed at length potential causes of persistent microscopic hematuria; discussed further workup versus surveillance monitoring; risks and benefits of these interventions were discussed at length He currently denies any bothersome urinary issues or concerns. He reports be happy with current voiding parameters. Start finasteride 5 mg daily Will obtain PSA in 4 months. Follow-up in 4 months with lab to be completed prior and PVR at next office visit; or sooner with any issues, concerns, and or questions. Orders: Orders Urine Cytology Today R31.29 - Other microscopic hematuria AMB Urinalysis Automated Today Z13.9 - Encounter for screening, unspecified PSA,Total (Free>4and<10) 4 Months R97.20 - Elevated prostate specific antigen [PSA] Medications: New finasteride 5 mg PO DAILY 90 days 90 tabs 1RF N40.1 - Benign prostatic hyperplasia with lower urinary tract symptoms, R33.9 - Retention of urine, unspecified Patient Instructions: The patient had an opportunity to ask questions regarding the treatment plan. All questions were answered. Physical exam, labs, and imaging were discussed and reviewed in detail. As well as risks, benefits, and discussion of treatment choices. No major barriers to understanding were identified. The patient expressed understanding and agreement with the above treatment plan. The patient was made aware they should contact our office by phone for worsening of their current condition, the appearance of new symptoms, or with any questions or concerns. Compliance is encouraged with any medications and follow up testing that is ordered. It is a privilege to be allowed the opportunity to participate in? your urological care.? Again, if you have any questions or concerns If you have any questions or concerns please do not hesitate to contact me. The office is [phone]. This note is constructed using voice recognition software. While every effort has been made to ensure accuracy rigging engineer errors may have been included. Yours sincerely, MEL Anderson Coding Level of Care Code Est Pt Level 4 (03608) Diagnoses Elevated PSA R97.20 Microscopic hematuria R31.29 Bladder trabeculation N32.89
== END 2024-01-22 10:04 | disposition home or self-care (01) ==
PROVIDERS: PCP Nurse Practitioner Family; Visit Provider Nurse Practitioner Family
DX: R97.20 Elevated prostate specific antigen [PSA] (principal); R31.29 Other microscopic hematuria; N32.89 Other specified disorders of bladder
CPT/HCPCS: 99214

== ENCOUNTER 2024-01-22 09:17 | Outpatient (REF) | payer MEDICARE, SELFPAY ==
[2024-01-22 17:07] LABS: Urine Cytology See Pathology rpt
== END 2024-01-22 09:18 | disposition home or self-care (01) ==
LOC: HO.LNP 09:17
PROVIDERS: PCP Nurse Practitioner Family; Visit Provider Nurse Practitioner Family
DX: R31.29 Other microscopic hematuria (principal)
CPT/HCPCS: 81003; 88112; 99212

== ENCOUNTER 2024-02-01 09:28 | Outpatient (REF) | payer MEDICARE, SELFPAY ==
[2024-02-01 10:36] LABS: Appearance Urine Clear; Color Urine Yellow; Glucose Urine UA Negative (Negative); Leukocyte Esterase Urine Negative (Negative); Nitrite Urine Negative (Negative); PH 5.5 (5.0-9.0); UMIC TRIGGER UACC YES; Urine Blood Small (1+) (Negative); Urine Ketones Negative (Negative); Urine Protein Negative (Neg-Trace)
[2024-02-01 10:39] LABS: MANUAL DIFF FLAG NO
[2024-02-01 10:49] LABS: Basophils Absolute Auto 0.1 X10*3/uL (0.0-0.2); Basophils Percent Auto 0.9 % (0-2); Eosinophils Absolute Auto 0.2 X10*3/uL (0.0-0.4); Eosinophils Percent Auto 3.8 % (0-4); Hematocrit 41.6 % (42.0-52.0); Hemoglobin 14.1 g/dl (14.0-18.0); Imm Gran Abs Auto 0.05 X10*3/uL (0.00-0.03); Imm Gran Pct Auto 0.9 % (0.0-0.4); Lymphocytes Absolute Auto 2.1 X10*3/uL (1.2-4.9); Lymphocytes Percent Auto 35.9 % (20-40); Mean Corpuscular HGB Conc 33.9 g/dl (31.0-36.0); Mean Corpuscular Hemoglobin 32.3 pg (27.0-33.0); Mean Corpuscular Volume 95.2 fL (80.0-98.0); Mean Platelet Volume 9.4 fL (9.4-12.4); Monocytes Absolute Auto 0.6 X10*3/uL (0.1-1.2); Monocytes Percent Auto 10.8 % (2-11); Neutrophils Absolute Auto 2.8 x10*3/uL (2.0-8.3); Neutrophils Percent Auto 47.7 % (45-73); Platelet Count 213 X10*3/uL (160-400); Red Blood Count 4.37 X10*6/uL (4.60-5.80); White Blood Count 5.8 X10*3/uL (4.8-10.8)
[2024-02-01 10:50] LABS: Bacteria Urine None Seen (None Seen); Hyaline Casts Urine 0-2 /LPF (0-2); Squamous Epithelial Cell Urine 0-2 /HPF (0-2); WBC Urine 0-5 /HPF (0-5)
[2024-02-01 12:03] LABS: Alanine Aminotransferase 29 U/L (0-40); Albumin Level 4.6 g/dL (3.5-5.0); Alkaline Phosphatase 61 U/L (39-117); Anion Gap 17 (12-20); Aspartate Amino Transferase 33 U/L (5-37); Bilirubin Total 1.4 mg/dL (0.0-1.0); Blood Urea Nitrogen 13 mg/dL (9-16); Carbon Dioxide 24 mmol/L (22-29); Chloride 102 mmol/L (96-108); Estimated Glomerular Filt Rate > 60; Glucose Random 81 mg/dL (60-115); Potassium 4.7 mmol/L (3.3-5.1); Sodium 138 mmol/L (135-145); Total Protein 8.5 g/dL (6.5-8.0)
[2024-02-01 12:19] LABS: PSA,Total (Free>4and<10) 5.01 ng/mL (0.00-4.00)
[2024-02-04 11:24] LABS: Free Prostate Spec Ag 1.1 ng/mL; Percent Free Prostate Spec Ag 22 % (calc) (>25)
== END 2024-02-01 09:29 | disposition home or self-care (01) ==
LOC: HO.HMGCLDS 09:28
PROVIDERS: PCP Nurse Practitioner Family; Referring Provider Nurse Practitioner Family; Visit Provider Nurse Practitioner Family
DX: Z12.5 Encounter for screening for malignant neoplasm of prostate (principal); E03.9 Hypothyroidism, unspecified; I10 Essential (primary) hypertension; R97.20 Elevated prostate specific antigen [PSA]; D64.9 Anemia, unspecified
CPT/HCPCS: 36415; 80053; 81001; 84153; 84154; 85025

== ENCOUNTER 2024-03-05 08:53 | Outpatient (AMB) | payer MEDICARE, SELFPAY ==
--- NOTE | 2024-03-05 08:58 | A.OFFVIS_ITS ---
Intake Vital Signs 03/05/24 09:00 Height 5 ft 10 in Weight 204 lb BMI 29.3 BP 120/78 Blood Pressure Location Lt brachial Position Sitting Pulse 59 Pulse Source Pulse Oximeter Pulse Oximetry (%) 100 Oxygen Delivery Method Room Air Intake Visit Reasons: SWV G4039 Intake Note: pt is here for MWV Allergies amlodipine Allergy (Severe, Verified 03/05/24 10:55) swelling Medication List - Last Reconciled 03/05/24 by MEL Rose atorvastatin 10 mg PO BEDTIME finasteride 5 mg PO DAILY 90 days hydrochlorothiazide 12.5 mg PO DAILY levothyroxine 150 mcg PO DAILY lisinopril 20 mg PO DAILY sildenafil 25 mg PO DAILY PRN Do you need a note to return to daycare/school/sports/work: No HPI SWV G4039 HPI Details Pt is here for an SWV. Denies fever, chills, and dizziness. [place] of care not filled out. PPP will be scanned in chart and copy will be given to pt. [facility] Medical History Hepatitis C Hypertension Surgical History No pertinent past surgical history Family History Father No problems noted. Mother Gastric cancer Sister No problems noted. Son No problems noted. Son No problems noted. Daughter No problems noted. Brother No problems noted. Brother No problems noted. Brother No problems noted. Brother No problems noted. Social History Housing: House Alcohol intake: never Patient Tobacco Use Status: Never used Tobacco e-Cigarette/Vaping Use: Never Used Second Hand Smoke Exposure: No service: No Current occupational status: employed Cognitive needs: No Hearing needs: No Vision needs: No Questionnaire Medicare Wellness Checkup [age] What gender do you identify with?: male During the past 4 weeks, how much have you been bothered by emotional problems such as feeling anxious, depressed, irritable, sad or downhearted, and blue?: not at all During the past 4 weeks, has your physical & emotional health limited your social activities with family, friends, neighbors, or groups?: not at all During the past 4 weeks, how much bodily pain have you generally had?: no pain During the past 4 weeks, was someone available to help you if you needed & wanted help?: yes, as much as I wanted During the past 4 weeks, what was the hardest physical activity you could do for at least 2 minutes?: heavy Can you get to places out of walking distance without help? (For eg., can you travel alone on buses, taxis or drive your car?): Yes Can you go shopping for groceries or clothes without someone's help?: Yes Can you prepare your own meals?: Yes Can you do your housework without help?: Yes Because of any health problems, do you need the help of another person with your personal care needs such as eating, bathing, dressing or getting around the house?: No Can you handle your own money without help?: Yes During the past 4 weeks, how would you rate your health in general?: very good During the past 4 weeks how have things been going for you?: pretty well Are you having difficulties driving your car?: no Do you always fasten your seat belt when you are in a car?: yes, usually During past 4 weeks, have you been bothered by the following: never: Falling or dizzy when standing up, Trouble eating well?, Teeth or denture problems?, Problems using the telephone? and Tiredness or fatigue? and sometimes: Sexual problems? Have you fallen 2 or more times in the past year?: No Are you afraid of falling?: No Are you a smoker?: no During the past 4 weeks, how many drinks of wine, beer, or other alcoholic beverages did you have?: 6-9 drinks per week Do you exercise for about 20 minutes 3 or more times a week?: yes, all the time Have you been given information to help with the following?: yes: Hazards in your house that might hurt you? and yes: Keeping track of your medications? How often do you have trouble taking medicines the way you have been told to take them?: I always take medicine as prescribed How confident are you that you can control & manage most of your health problems?: very confident What is your race?: White Mini Mental State Exam (MMSE) Orientation What is the (year) (season) (date) (day) (month)?: year, season, date, day and month Where are we (state) (county) (town or city) (hospital) (floor)?: state, county and town or city Registration Name of 3 unrelated objects clearly and slowly, then ask patient to repeat all 3 of them. (1st repeat determines score. Make sure they can repeat all three): object 1, object 2 and object 3 Attention & Calculation (CHOOSE ONE) Spell WORLD backwards (DLROW): 5 letters Recall Ask patient to repeat the 3 items from question #3.: object 1, object 2 and object 3 Language Show patient a wristwatch & ask what it is. Repeat for pencil.: watch and pencil Ask the patient to repeat the phrase 'No ifs, ands, or buts' after you.: correct Ask the patient to 'take a piece of paper with their right hand' 'fold paper in half' 'place paper on floor': take paper in right hand, fold paper in half and place paper on floor Print the sentence 'CLOSE YOUR EYES' on a piece. If patient actually closes eyes then score.: followed written direction Give patient a blank piece of paper & ask to write a sentence. Score if it contains a noun & verb.: sentence contains subject and verb Ask patient to copy figure of intersecting pentagons exactly. Score if all 10 angles & 2 intersects are included.: all 10 angles present & 2 are intersected Score Score: 28 Activity of Daily Living Bathing - sponge bath, tub bath or shower: receives no assistance (gets in/out by self, if usual bathing means Dressing - getting clothes from closets & drawers, including inner/outer garments & fasteners.: gets clothes & gets completely dressed without help Toileting - going to the 'toilet room' for urine/bowel elimination & cleaning self/arranging clothes: goes to toilet room, cleans self, arranges clothes without help Transfer: moves in & out of bed and chair without help (may use support object) Continence: controls urination/bowel movements completely by self Feeding: feeds self without help Total Score: 0 Information obtained from: patient Using telephone: independent Traveling: independent Shopping: independent Housework: independent Taking medicine: independent Managing money: independent PHQ-9 Over the last 2 weeks, how often have you been bothered by any of the following problems? 1. Little interest or pleasure in doing things: not at all 2. Feeling down, depressed, or hopeless: not at all 3. Trouble falling or staying asleep, or sleeping too much: not at all 4. Feeling tired or having little energy: not at all 5. Poor appetite or overeating: not at all 6. Feeling bad about yourself - or that you are a failure or have let yourself or your family down: not at all 7. Trouble concentrating on things, such as reading the newspaper or watching television: not at all 8. Moving or speaking so slowly that other people could have noticed. Or the opposite - being so fidgety or restless that you have been moving around a lot more than usual: not at all 9. Thoughts that you would be better off or of hurting yourself in some way: not at all Total score: 0 Depression Screening Interpretation: Negative Depression Screening Done: Yes 62116 - PHQ-9 Billing: Yes Source: Developed by Drs. Sundar Wright, Natalee Wolfe, Artemio Reynoso and colleagues, with an educational som from [employer]. IGGY-7 AMB Questionnaire IGGY-7 Date IGGY - 7 assessed: 03/05/24 Feeling nervous, anxious, or on edge: 0 = Not at all Not being able to stop or control worryin = Not at all Worrying too much about different things: 0 = Not at all Trouble relaxin = Not at all Being so restless that it is hard to sit still: 0 = Not at all Becoming easily annoyed or irritable: 0 = Not at all Feeling afraid as if something awful might happen: 0 = Not at all Total IGGY-7 score (0-4 normal; 5-9 mild; 10-14 moderate; 15-21 severe): 0 Source: Developed by Drs. Sundar Wrgiht, Artemio Barrios and colleagues, with an educational som from [employer]. IGGY-7 Assessment Billing IGGY-7 Assessment Tool: IGGY-7 Assessment 01934 AUDIT C Alcohol Use Questionnaire (AUDIT-C) 1. How often do you have a drink containing alcohol?: Monthly or less 2. How many drinks containing alcohol do you have on a typical day when you are drinking?: 1 or 2 3. How often do you have six or more drinks on one occasion?: Never Total Score: 1 Score Reviewed/Action Taken: Yes Review of Systems Const Reports as per HPI Physical Exam Vital Signs: Last Vital Signs Pulse 59 03/05/24 09:00 BP 120/78 03/05/24 09:00 Pulse Ox 100 03/05/24 09:00 Oxygen Delivery Method Room Air 03/05/24 09:00 BMI result Body Mass Index 29.3 Const General: cooperative Orientation/consciousness: patient oriented x3 Neuro Other: - romberg, can tandem walk, can walk and turn, can rise from sitting to standing, passed whisper test General: patient oriented x3 Psych Appearance: grossly normal Mental Status: mental status grossly normal Speech and movement: Normal speech and movement present Affect: normal affect Attitude: cooperative Thought process: Normal thought process present Thought content: Normal thought content present Insight: Good insight present (Psych) Judgement: Good judgement present (Psych) Assessment & Plan Assessment & Plan (1) Screening for colon cancer: Code(s): Z12.11 - Encounter for screening for malignant neoplasm of colon (2) Encounter for annual wellness visit (AWV) in Medicare patient: Code(s): Z00.00 - Encounter for general adult medical examination without abnormal findings Plan The patient agreed to the use of a regional medical director for this encounter. Scribed for MEL Roman by Martha Johnson regional medical director, on 03/05/2024 at 09:25 EST. Orders: Referrals Gastroenterology Referral Z12.11 - Encounter for screening for malignant neoplasm of colon Medications: New sildenafil administer 30 minutes to 4 hours before activity 25 mg PO DAILY PRN 10 tabs 0RF sexual activity Quality Reporting (2019) Depression/Bipolar (159/160/161/177) PHQ-9: Total score: 0 Coding Level of Care Code Medicare Subsequent (G0439) Diagnoses Screening for colon cancer Z12.11 Encounter for annual wellness visit (AWV) in Medicare patient Z00.00 Additional Codes IGGY-7 Assessment Billing - IGGY-7 Assessment Tool: IGGY-7 Assessment 83746 ([id number]) Advance Care Planning Forms completed: Health Care Proxy (form given to pt), MOLST (form given to pt to fill out) and Living will (done, according to pt.)
[2024-03-05 09:00] VITALS: BP 120/78; PULSE 59; O2SAT 100; BMI 29.3
== END 2024-03-05 09:52 | disposition home or self-care (01) ==
PROVIDERS: PCP Nurse Practitioner Family; Visit Provider Nurse Practitioner Family
DX: Z00.00 Encounter for general adult medical examination without abnormal findings (principal); Z12.11 Encounter for screening for malignant neoplasm of colon
CPT/HCPCS: 99213; G0439

== ENCOUNTER 2024-05-01 10:02 | Outpatient (REF) | payer MEDICARE, SELFPAY | END 2024-05-01 10:03 | disposition home or self-care (01) | LOC: HO.HMGCLDS 10:02 | PROVIDERS: PCP Nurse Practitioner Family; Visit Provider Nurse Practitioner Family | DX: Z12.5 Encounter for screening for malignant neoplasm of prostate (principal); R97.20 Elevated prostate specific antigen [PSA] | CPT/HCPCS: 36415; 84153 ==

== ENCOUNTER 2024-05-23 09:12 | Outpatient (REF) | payer MEDICARE, SELFPAY ==
[2024-05-23 16:58] LABS: Urine Cytology See Pathology rpt
== END 2024-05-23 09:13 | disposition home or self-care (01) ==
LOC: HO.LNP 09:12
PROVIDERS: PCP Nurse Practitioner Family; Visit Provider Nurse Practitioner Family
DX: R31.29 Other microscopic hematuria (principal); R97.20 Elevated prostate specific antigen [PSA]; N40.0 Benign prostatic hyperplasia without lower urinary tract symptoms
CPT/HCPCS: 81003; 88112; 99212

== ENCOUNTER 2024-05-23 09:12 | Outpatient (AMB) | payer MEDICARE, SELFPAY ==
--- NOTE | 2024-05-23 09:29 | MHC.OFFVIS ---
Intake Visit Reasons: 4m/PSA Intake Note: Patient presents for follow up visit for Elevated PSA and psa results PSA: 2.10 Urology Medications: Finasteride and Sildenafil Blood Thinner: none Radiotelegrapher Required: No Accompanied by: Self / Same As Patient Allergies amlodipine Allergy (Severe, Verified 05/23/24 10:06) swelling Medication List - Last Reconciled 05/23/24 by ROSA MARIA Anderson- atorvastatin 10 mg PO BEDTIME finasteride 5 mg PO DAILY 90 days hydrochlorothiazide 12.5 mg PO DAILY levothyroxine 150 mcg PO DAILY lisinopril 20 mg PO DAILY sildenafil 25 mg PO DAILY PRN tadalafil (Cialis) 5 mg PO DAILY 90 days HPI Comments Details: José Miguel is a very pleasant 69-year-old male patient of Dr. Bowen. He has a past medical history of hep C and hypertension. He presents to the office today for follow-up. In discussion with the patient today reports to be doing and feeling well. He reports since his last office visit here he has had no bothersome urinary issues or concerns. He reports compliance with finasteride 5 mg daily. He reports noting issues with libido since starting finasteride. We discussed side effects of urological medications. Recent PSA results reviewed with the patient today as noted and trended below. Previous workup has included a retroperitoneal ultrasound 01/15 noting bilateral kidneys with no hydronephrosis or lesions noted. The bladder is well distended. Bilateral ureteral jets are demonstrated. Pre void bladder volume is approximately 175 mL. Postvoid bladder volume is approximately 70 mL. Mild bladder wall trabeculations are noted. Prostate volume is approximately 26 mL. 03/15 3.6, 11/16 5.0, 10/17 4.7, 12/15 5.5 % free PSA 15%, 05/17 2.1 We discussed decrease in PSA. When asked he denies any urinary issues or concerns. He reports nocturia 2 times per night however does not find this bothersome. In office urinalysis results reviewed with the patient today. 2+ microscopic hematuria however patient reports having previously followed up with Dr. Larson and undergoing workup for microscopic hematuria with no abnormal findings. Discussed urine cytology from last office visit 11/17 atypical urothelial cells and cytology 02/14 Negative for high-grade urothelial carcinoma. He denies any previous smoking history and or workplace chemical exposure. When asked he denies urinary urgency, urinary frequency, incontinence, visible/gross hematuria, dysuria, foul smelling urine, changes to urinary stream, flank pain, fever, and or chills. He is happy with his current voiding parameters. He otherwise offers no other issues or concerns at this time. [facility] Medical History Hepatitis C Hypertension Surgical History No pertinent past surgical history Family History Father No problems noted. Mother Gastric cancer Sister No problems noted. Son No problems noted. Son No problems noted. Daughter No problems noted. Brother No problems noted. Brother No problems noted. Brother No problems noted. Brother No problems noted. Social History Housing: House Alcohol intake: never Patient Tobacco Use Status: Never used Tobacco e-Cigarette/Vaping Use: Never Used Second Hand Smoke Exposure: No service: No Current occupational status: employed Cognitive needs: No Hearing needs: No Vision needs: No Review of Systems Const All systems reviewed & are unremarkable except as noted in HPI and below Physical Exam Const General: cooperative, healthy appearing, comfortable, no acute distress, well developed, alert and awake Orientation/consciousness: patient oriented x3 Limitations: no limitations HEENT Head: Yes normal to inspection, Yes normocephalic and Yes atraumatic Ears: hearing grossly normal bilaterally Eyes General: appearance normal, both eyes and all related structures Neck Neck: Yes normal visual inspection and Yes trachea midline Chest Chest palpation & inspection: normal inspection of the chest Resp Effort & Inspection: normal respiratory effort and able to speak in complete sentences Cardio Rate: regular rate GI Inspection: Yes normal to inspection General: Yes no CVA tenderness Back/Spine/Pelvis Back: no CVA tenderness Skin General skin exam: no rashes or lesions noted Neuro General: patient oriented x3 Extrem General: Yes normal to inspection Psych Appearance: grossly normal and well kempt Mental Status: mental status grossly normal Speech and movement: Normal speech and movement present and Clear speech present Affect: normal affect Attitude: cooperative Thought process: Normal thought process present Thought content: Normal thought content present Insight: Fair insight present (Psych) Judgement: Fair judgement present (Psych) Results AMB Urinalysis, Automated UA Leukoctes 0 Seth/uL Last Edit by Keyona Flores on 05/23/24 09:40 UA Nitrite Last Edit by Keyona Flores on 05/23/24 09:40 UA Urobilinogen 0.2 mg/dL Last Edit by Keyona Flores on 05/23/24 09:40 UA Protein 0 mg/dL Last Edit by Keyona Flores on 05/23/24 09:40 UA pH 6.0 Last Edit by Keyona Flores on 05/23/24 09:40 UA Blood 80 [place]/uL Last Edit by Keyona Flores on 05/23/24 09:40 UA Specific [place] 1.025 Last Edit by Keyona Flores on 05/23/24 09:40 UA Ketone Last Edit by Keyona Flores on 05/23/24 09:40 UA Bilirubin 0 mg/dL Last Edit by Keyona Flores on 05/23/24 09:40 UA Glucose 0 mg/dL Last Edit by Keyona Flores on 05/23/24 09:40 Results Reviewed Results Reviewed: Laboratory Last Values Urine pH (Auto) 6.0 05/23/24 09:34 Specific [place] (Auto) 1.025 05/23/24 09:34 Urine Protein (Auto) 0 mg/dL 05/23/24 09:34 Glucose (UA)(Auto) 0 mg/dL 05/23/24 09:34 Urine Blood (Auto) 80 [place]/uL 05/23/24 09:34 Urine Bilirubin (Auto) 0 mg/dL 05/23/24 09:34 Urine Urobilinogen (Auto) 0.2 mg/dL 05/23/24 09:34 Leukocyte Esterase (Auto) 0 Seth/uL 05/23/24 09:34 Assessment & Plan Assessment & Plan (1) Elevated PSA: Code(s): R97.20 - Elevated prostate specific antigen [PSA] Category: Medical (2) Enlarged prostate: Code(s): N40.0 - Benign prostatic hyperplasia without lower urinary tract symptoms Category: Medical (3) Microscopic hematuria: Code(s): R31.29 - Other microscopic hematuria Category: Medical Plan In office urinalysis results reviewed with the patient today; as noted above; will send for urine cytology. Discussed at length potential causes of microscopic hematuria; discussed further workup to include CT urogram, and in office cystoscopy; risks and benefits of these interventions were discussed. Will continue with surveillance monitoring per patient request. Recent PSA results reviewed with the patient today; as noted above. Patient currently denies any bothersome urinary issues or concerns. He reports be happy with current voiding parameters. Continue finasteride. Start Cialis 5 mg daily as discussed and prescribed. Discussed lifestyle modifications to assist with low libido/erectile dysfunction. Will obtain PSA in 4 months. Follow-up in 4 months with lab to be completed prior; or sooner with any issues, concerns, and or questions. Orders: Orders Prostate Specific Antigen 4 Months N40.0 - Benign prostatic hyperplasia without lower urinary tract symptoms, R97.20 - Elevated prostate specific antigen [PSA] AMB Urinalysis Automated Today Z13.9 - Encounter for screening, unspecified Medications: New tadalafil (Cialis) [id number] [facility] [place] [id number] Member [id number] 5 mg PO DAILY 90 days 90 tabs 2RF Patient Instructions: The patient had an opportunity to ask questions regarding the treatment plan. All questions were answered. Physical exam, labs, and imaging were discussed and reviewed in detail. As well as risks, benefits, and discussion of treatment choices. No major barriers to understanding were identified. The patient expressed understanding and agreement with the above treatment plan. The patient was made aware they should contact our office by phone for worsening of their current condition, the appearance of new symptoms, or with any questions or concerns. Compliance is encouraged with any medications and follow up testing that is ordered. It is a privilege to be allowed the opportunity to participate in? your urological care.? Again, if you have any questions or concerns If you have any questions or concerns please do not hesitate to contact me. The office is [phone]. This note is constructed using voice recognition software. While every effort has been made to ensure accuracy acoustical carpenter errors may have been included. Yours sincerely, MEL Anderson Coding Level of Care Code Est Pt Level 4 (62431) Diagnoses Elevated PSA R97.20 Enlarged prostate N40.0 Microscopic hematuria R31.29
== END 2024-05-23 10:05 | disposition home or self-care (01) ==
PROVIDERS: PCP Nurse Practitioner Family; Visit Provider Nurse Practitioner Family
DX: R97.20 Elevated prostate specific antigen [PSA] (principal); N40.0 Benign prostatic hyperplasia without lower urinary tract symptoms; R31.29 Other microscopic hematuria; Z13.9 Encounter for screening, unspecified
CPT/HCPCS: 99214

== ENCOUNTER 2024-09-04 09:36 | Outpatient (REF) | payer MEDICARE, SELFPAY ==
[2024-09-04 14:00] LABS: Prostate Specific Antigen 3.59 ng/mL (<0.05-4.0)
== END 2024-09-04 09:37 | disposition home or self-care (01) ==
LOC: HO.HMGCLDS 09:36
PROVIDERS: PCP Nurse Practitioner Family; Visit Provider Nurse Practitioner Family
DX: N40.0 Benign prostatic hyperplasia without lower urinary tract symptoms (principal); R97.20 Elevated prostate specific antigen [PSA]; Z12.5 Encounter for screening for malignant neoplasm of prostate
CPT/HCPCS: 36415; 84153

== ENCOUNTER 2024-09-22 08:39 | Outpatient (AMB) | payer MEDICARE, SELFPAY ==
--- NOTE | 2024-09-22 09:10 | A.OFFVIS_ITS ---
Intake Visit Reasons: 4m/PSA Intake Note: Patient presents for follow up visit for Elevated PSA and psa results PSA: 3.59 Urology Medications: Finasteride, sildenafil, tadalafil Blood Thinner: none Member Of [employer] Required: No Accompanied by: Self / Same As Patient Allergies amlodipine Allergy (Severe, Verified 09/22/24 09:47) swelling Medication List - Last Reconciled 09/22/24 by MEL Anderson atorvastatin 10 mg PO BEDTIME finasteride 5 mg PO DAILY 90 days hydrochlorothiazide 12.5 mg PO DAILY levothyroxine 150 mcg PO DAILY lisinopril 20 mg PO DAILY sildenafil 25 mg PO DAILY PRN tadalafil (Cialis) 5 mg PO DAILY 90 days HPI Comments Details: José Miguel is a very pleasant 69-year-old male patient of Dr. Bowen. He has a past medical history of hep C and hypertension. He presents to the office today for follow-up of his elevated PSA. In discussion with the patient today he reports to be doing and feeling well. Reports compliance with finasteride as prescribed. Recent PSA results reviewed with the patient today as noted and trended below. We discussed bump in PSA over the last 4 months and potential causes for this finding. Previous workup has included a retroperitoneal ultrasound 01/15 noting bilateral kidneys with no hydronephrosis or lesions noted. The bladder is well distended. Bilateral ureteral jets are demonstrated. Pre void bladder volume is approximately 175 mL. Postvoid bladder volume is approximately 70 mL. Mild bladder wall trabeculations are noted. Prostate volume is approximately 26 mL. 03/15 3.6, 11/16 5.0, 10/17 4.7, 12/15 5.5 % free PSA 15%, 05/17 2.1, 09/16 3.6 When asked he denies any urinary issues or concerns. He reports nocturia 2 times per night however does not find this bothersome. In office urinalysis results reviewed with the patient today. 2+ microscopic hematuria however patient reports having previously followed up with Dr. Larson and undergoing workup for microscopic hematuria with no abnormal findings. Discussed urine cytology from last office visit 11/17 atypical urothelial cells and cytology 02/14 and 06/17 Negative for high-grade urothelial carcinoma. He denies any previous smoking history and or workplace chemical exposure. When asked he denies urinary urgency, urinary frequency, incontinence, visible/gross hematuria, dysuria, foul smelling urine, changes to urinary stream, flank pain, fever, and or chills. He is happy with his current voiding parameters. He otherwise offers no other issues or concerns at this time. [facility] Medical History Hepatitis C Hypertension Surgical History No pertinent past surgical history Family History Father No problems noted. Mother Gastric cancer Sister No problems noted. Son No problems noted. Son No problems noted. Daughter No problems noted. Brother No problems noted. Brother No problems noted. Brother No problems noted. Brother No problems noted. Social History Housing: House Alcohol intake: never Patient Tobacco Use Status: Never used Tobacco e-Cigarette/Vaping Use: Never Used Second Hand Smoke Exposure: No service: No Current occupational status: employed Cognitive needs: No Hearing needs: No Vision needs: No Review of Systems Const All systems reviewed & are unremarkable except as noted in HPI and below Physical Exam Const General: cooperative, healthy appearing, comfortable, no acute distress, well developed, alert and awake Orientation/consciousness: patient oriented x3 Limitations: no limitations HEENT Head: Yes normal to inspection, Yes normocephalic and Yes atraumatic Ears: hearing grossly normal bilaterally Eyes General: appearance normal, both eyes and all related structures Neck Neck: Yes normal visual inspection and Yes trachea midline Chest Chest palpation & inspection: normal inspection of the chest Resp Effort & Inspection: normal respiratory effort and able to speak in complete sentences Cardio Rate: regular rate GI Inspection: Yes normal to inspection General: Yes no CVA tenderness Back/Spine/Pelvis Back: no CVA tenderness Skin General skin exam: no rashes or lesions noted Neuro General: patient oriented x3 Extrem General: Yes normal to inspection Psych Appearance: grossly normal and well kempt Mental Status: mental status grossly normal Speech and movement: Normal speech and movement present and Clear speech present Affect: normal affect Attitude: cooperative Thought process: Normal thought process present Thought content: Normal thought content present Insight: Fair insight present (Psych) Judgement: Fair judgement present (Psych) Results AMB Urinalysis, Automated UA Leukoctes 0 Seth/uL Last Edit by [employer] on 09/22/24 10:12 UA Nitrite Last Edit by [employer] on 09/22/24 10:12 UA Urobilinogen 0.2 mg/dL Last Edit by [employer] on 09/22/24 10:12 UA Protein 0 mg/dL Last Edit by [employer] on 09/22/24 10:12 UA pH 6.0 Last Edit by [employer] on 09/22/24 10:12 UA Blood 80 Poncho/uL Last Edit by [employer] on 09/22/24 10:12 UA Specific [place] 1.015 Last Edit by [employer] on 09/22/24 10:12 UA Ketone Last Edit by [employer] on 09/22/24 10:12 UA Bilirubin 0 mg/dL Last Edit by [employer] on 09/22/24 10:12 UA Glucose 0 mg/dL Last Edit by [employer] on 09/22/24 10:12 Results Reviewed Results Reviewed: Laboratory Last Values Urine pH (Auto) 6.0 09/22/24 10:02 Specific [place] (Auto) 1.015 09/22/24 10:02 Urine Protein (Auto) 0 mg/dL 09/22/24 10:02 Glucose (UA)(Auto) 0 mg/dL 09/22/24 10:02 Urine Blood (Auto) 80 [place]/uL 09/22/24 10:02 Urine Bilirubin (Auto) 0 mg/dL 09/22/24 10:02 Urine Urobilinogen (Auto) 0.2 mg/dL 09/22/24 10:02 Leukocyte Esterase (Auto) 0 Seth/uL 09/22/24 10:02 Assessment & Plan Assessment & Plan (1) Elevated PSA: Code(s): R97.20 - Elevated prostate specific antigen [PSA] Category: Medical (2) Enlarged prostate: Code(s): N40.0 - Benign prostatic hyperplasia without lower urinary tract symptoms Category: Medical Plan In office urinalysis results reviewed with the patient today; as noted above. Recent PSA results reviewed with the patient today; as noted above. We discussed potential causes of slight increase in PSA despite compliance with finasteride 5 mg daily as prescribed. Discussed further intervention to include MRI of the prostate verses prostate biopsy verses surveillance monitoring; risks and benefits of these interventions were discussed. Will obtain redraw of PSA with no sex the night before, no caffeine morning of, and no heavy lifting 1-2 days prior. Continue finasteride as discussed and prescribed. Follow-up in 4-8 weeks with redraw of PSA; or sooner with any issues, concerns, and or questions. Orders: Orders AMB Urinalysis Automated Today Z13.9 - Encounter for screening, unspecified Prostate Specific Antigen Today N40.0 - Benign prostatic hyperplasia without lower urinary tract symptoms, R97.20 - Elevated prostate specific antigen [PSA] Patient Instructions: The patient had an opportunity to ask questions regarding the treatment plan. All questions were answered. Physical exam, labs, and imaging were discussed and reviewed in detail. As well as risks, benefits, and discussion of treatment choices. No major barriers to understanding were identified. The patient expressed understanding and agreement with the above treatment plan. The patient was made aware they should contact our office by phone for worsening of their current condition, the appearance of new symptoms, or with any questions or concerns. Compliance is encouraged with any medications and follow up testing that is ordered. It is a privilege to be allowed the opportunity to participate in? your urological care.? Again, if you have any questions or concerns If you have any questions or concerns please do not hesitate to contact me. The office is [phone]. This note is constructed using voice recognition software. While every effort has been made to ensure accuracy slide fastener repairer errors may have been included. Yours sincerely, MEL Anderson Coding Level of Care Code Est Pt Level 3 (50932) Complex EM visit Add On G2211 Diagnoses Elevated PSA R97.20 Enlarged prostate N40.0
== END 2024-09-22 09:48 | disposition home or self-care (01) ==
PROVIDERS: PCP Nurse Practitioner Family; Visit Provider Nurse Practitioner Family
DX: R97.20 Elevated prostate specific antigen [PSA] (principal); N40.0 Benign prostatic hyperplasia without lower urinary tract symptoms; Z13.9 Encounter for screening, unspecified
CPT/HCPCS: 99213; G2211

== ENCOUNTER → 2024-09-22 08:39 | Outpatient (BNVA) | payer MEDICARE, SELFPAY | PROVIDERS: PCP Nurse Practitioner Family; Visit Provider Nurse Practitioner Family | DX: R97.20 Elevated prostate specific antigen [PSA] (principal); N40.0 Benign prostatic hyperplasia without lower urinary tract symptoms | CPT/HCPCS: 81003; 99212 ==

== ENCOUNTER 2024-11-06 07:55 | Outpatient (REF) | payer MEDICARE, SELFPAY ==
[2024-11-06 10:48] LABS: Prostate Specific Antigen 3.13 ng/mL (<0.05-4.0)
== END 2024-11-06 07:56 | disposition home or self-care (01) ==
LOC: HO.HMGCLDS 07:55
PROVIDERS: PCP Nurse Practitioner Family; Visit Provider Nurse Practitioner Family
DX: N40.0 Benign prostatic hyperplasia without lower urinary tract symptoms (principal); R97.20 Elevated prostate specific antigen [PSA]; Z12.5 Encounter for screening for malignant neoplasm of prostate
CPT/HCPCS: 36415; 84153

== ENCOUNTER 2024-11-11 09:18 | Outpatient (AMB) | payer MEDICARE, SELFPAY ==
--- NOTE | 2024-11-11 09:20 | A.OFFVIS_ITS ---
Vital Signs 11/11/24 09:21 Height 5 ft 10 in Weight 196 lb 3.382 oz BMI 28.2 BP 125/71 Blood Pressure Location Lt brachial Position Sitting Pulse 57 Intake Visit Reasons: Colonoscopy Screening Intake Note: José Miguel presents in the office as a new patient colonoscopy screening. CC: He states that he is just due for a colonoscopy. 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 male with past medical history of dyslipidemia, anemia, enlarged prostate, hypothyroidism, hypertension is here today for pre colonoscopy screening.? Patient was sent to us by his PCP.? Last colonoscopy in January of 2015. Patient reports that he had a normal colonoscopy.? Patient denies any gastrointestinal symptoms in the past or at present.? Denies any personal or family history of gastrointestinal disease, colon polyps, or CRC.? Denies history of difficulty with sedation or anesthesia in the past.? Negative for history of sleep apnea.? Denies any history of cardiac, renal, pulmonary, or hepatic disease.?? No history of infectious? diseases like hepatitis A, B, C, HIV or tuberculosis.? Patient is not on any anticoagulation COUNT INCLUDES [facility] Medical History Hepatitis C Hypertension Surgical History Hx of colonoscopy No pertinent past surgical history Family History Father No problems noted. Mother Gastric cancer Sister No problems noted. Son No problems noted. Son No problems noted. Daughter No problems noted. Brother No problems noted. Brother No problems noted. Brother No problems noted. Brother No problems noted. Social History Housing: House Alcohol intake: never Patient Tobacco Use Status: Never used Tobacco e-Cigarette/Vaping Use: Never Used Second Hand Smoke Exposure: No service: No Current occupational status: employed Cognitive needs: No Hearing needs: No Vision needs: No Review of Systems Const Denies weight gain and Denies weight loss ENT Reports no additional complaints, Denies dysphagia and Denies odynophagia Card Reports no additional complaints Resp Reports no additional complaints GI Denies abdominal pain, Denies belching, Denies melena, Denies bloating, Denies change in bowel habits, Denies dysphagia, Denies excessive flatus, Denies dyspepsia, Denies heartburn, Denies diarrhea, Denies loose stools, Denies nausea, Denies odynophagia and Denies vomiting Reports no additional complaints Musc Reports no additional complaints Neuro Reports no additional complaints Psych Reports no additional complaints Endo Reports no additional complaints Physical Exam Vital Signs: Last Vital Signs Pulse 57 11/11/24 09:21 BP 125/71 11/11/24 09:21 BMI result Body Mass Index 28.2 Const General: healthy appearing, no acute distress and well developed Nutritional Appearance: well nourished Orientation/consciousness: patient oriented x3 Resp Effort & Inspection: normal respiratory effort, able to speak in complete sentences, no tracheal deviation and symmetric chest movement Auscultation: clear to auscultation bilaterally Cardio Rate: regular rate GI Inspection: Yes normal to inspection and No distended Palpation (GI): Soft to palpation, not firm, nontender and No hepatosplenomegaly present Auscultation: normal bowel sounds General: Yes no CVA tenderness Back/Spine/Pelvis Back: no CVA tenderness Skin General skin exam: elasticity normal, turgor normal and dry skin Neuro General: patient oriented x3 Psych Appearance: grossly normal Mental Status: mental status grossly normal Assessment & Plan Assessment & Plan (1) Screening for colon cancer: Code(s): Z12.11 - Encounter for screening for malignant neoplasm of colon Category: Medical Plan Patient denies any GI, cardiac or respiratory symptoms.? Denies any issues with anesthesia in the past.? Denies any history of sleep apnea.? No history infectious diseases in the past or present.? Not on any anticoagulation therapy.? No family or personal history of colon cancer.? Patient denies melena, hematochezia, unintentional weight loss or ribbon like stools.? Discussed at length the pre-procedure,? prep, diet & medications as well as what to expect prior, during and after the procedure.?? Stressed the importance of good bowel prep.? Recommended the use of Vaseline or Calmoseptine OTC & baby wipes with bowel movements to promote comfort.? ?Patient verbalizes understanding and agrees to plan of care.? He was given the opportunity to ask questions and all questions answered.? We will see him after the procedure.? Medications: New bisacodyl (Dulcolax (bisacodyl)) take 4 tabs at noon the day before your colonoscopy 20 mg (4 x 5 mg) PO ONCE 1 day 4 tabs 0RF Z12.11 - Encounter for screening for malignant neoplasm of colon polyethylene glycol 3350 (Miralax) As directed by gastroenterology department at [facility] 238 grams PO ONCE 238 grams 0RF Z12.11 - Encounter for screening for malignant neoplasm of colon Coding Level of Care Code New Pt Level 3 (95513) Diagnoses Screening for colon cancer Z12.11 Time Spent (min) 40 Comment 30 minutes spent with patient and additional 10 minutes spent reviewing his records
[2024-11-11 09:21] VITALS: BP 125/71; PULSE 57; BMI 28.2
== END 2024-11-11 09:50 | disposition home or self-care (01) ==
PROVIDERS: PCP Nurse Practitioner Family; Visit Provider Nurse Practitioner Family
DX: Z01.818 Encounter for other preprocedural examination (principal); Z12.11 Encounter for screening for malignant neoplasm of colon
CPT/HCPCS: 99024

== ENCOUNTER → 2024-11-11 09:18 | Outpatient (BNVA) | payer MEDICARE, SELFPAY | PROVIDERS: PCP Nurse Practitioner Family; Visit Provider Nurse Practitioner Family | DX: Z01.818 Encounter for other preprocedural examination (principal) | CPT/HCPCS: 99212 ==

== ENCOUNTER 2024-11-25 08:37 | Outpatient (REF) | payer MEDICARE, SELFPAY ==
[2024-11-25 16:44] LABS: Urine Cytology See Pathology rpt
== END 2024-11-25 08:38 | disposition home or self-care (01) ==
LOC: HO.LNP 08:37
PROVIDERS: PCP Nurse Practitioner Family; Visit Provider Nurse Practitioner Family
DX: N40.0 Benign prostatic hyperplasia without lower urinary tract symptoms (principal); R97.20 Elevated prostate specific antigen [PSA]; R31.29 Other microscopic hematuria
CPT/HCPCS: 81003; 88112; 99212

== ENCOUNTER 2024-11-25 08:37 | Outpatient (AMB) | payer MEDICARE, SELFPAY ==
--- NOTE | 2024-11-25 08:52 | A.OFFVIS_ITS ---
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 Required: No Accompanied by: Self / Same As Patient Allergies amlodipine Allergy (Severe, Verified 11/25/24 10:00) swelling Medication List - Last Reconciled 11/25/24 by MEL Anderson atorvastatin 10 mg PO BEDTIME bisacodyl (Dulcolax (bisacodyl)) 20 mg (4 x 5 mg) PO ONCE 1 day finasteride 5 mg PO DAILY 90 days hydrochlorothiazide 12.5 mg PO DAILY levothyroxine 150 mcg PO DAILY lisinopril 20 mg PO DAILY polyethylene glycol 3350 (Miralax) 238 grams PO ONCE sildenafil 25 mg PO DAILY PRN tadalafil (Cialis) 5 mg PO DAILY 90 days HPI Comments Details: José Miguel is a very pleasant 69-year-old male patient of Dr. Bowen. He has a past medical history of hep C and hypertension. He presents to the office today for follow-up of his elevated PSA. In discussion with the patient today he reports to be doing and feeling well. He reports compliance with finasteride as prescribed. Recent PSA results reviewed with the patient today as noted and trended below. Previous workup has included a retroperitoneal ultrasound 01/15 noting bilateral kidneys with no hydronephrosis or lesions noted. The bladder is well distended. Bilateral ureteral jets are demonstrated. Pre void bladder volume is approximately 175 mL. Postvoid bladder volume is approximately 70 mL. Mild bladder wall trabeculations are noted. Prostate volume is approximately 26 mL. 03/15 3.6, 11/16 5.0, 10/17 4.7, 12/15 5.5 % free PSA 15%, 05/17 2.1, 09/16 3.6, 11/18 3.1 When asked he denies any urinary issues or concerns. He reports nocturia 2 times per night however does not find this bothersome. In office urinalysis results reviewed with the patient today. 2+ microscopic hematuria however patient reports having previously followed up with Dr. Larson and undergoing workup for microscopic hematuria with no abnormal findings. Discussed urine cytology from last office visit 11/17 atypical urothelial cells and cytology 02/14 and 06/17 Negative for high-grade urothelial carcinoma. He denies any previous smoking history and or workplace chemical exposure. When asked he denies urinary ur gency, urinary frequency, incontinence, visible/gross hematuria, dysuria, foul smelling urine, changes to urinary stream, flank pain, fever, and or chills. He is happy with his current voiding parameters. He otherwise offers no other issues or concerns at this time. [facility] Medical History Hepatitis C Hypertension Surgical History Hx of colonoscopy No pertinent past surgical history Family History Father No problems noted. Mother Gastric cancer Sister No problems noted. Son No problems noted. Son No problems noted. Daughter No problems noted. Brother No problems noted. Brother No problems noted. Brother No problems noted. Brother No problems noted. Social History Housing: House Alcohol intake: never Patient Tobacco Use Status: Never used Tobacco e-Cigarette/Vaping Use: Never Used Second Hand Smoke Exposure: No service: No Current occupational status: employed Cognitive needs: No Hearing needs: No Vision needs: No Review of Systems Const All systems reviewed & are unremarkable except as noted in HPI and below Physical Exam Const General: cooperative, healthy appearing, comfortable, no acute distress, well developed, alert and awake Orientation/consciousness: patient oriented x3 Limitations: no limitations HEENT Head: Yes normal to inspection, Yes normocephalic and Yes atraumatic Ears: hearing grossly normal bilaterally Eyes General: appearance normal, both eyes and all related structures Neck Neck: Yes normal visual inspection and Yes trachea midline Chest Chest palpation & inspection: normal inspection of the chest Resp Effort & Inspection: normal respiratory effort and able to speak in complete sentences Cardio Rate: regular rate GI Inspection: Yes normal to inspection General: Yes no CVA tenderness Back/Spine/Pelvis Back: no CVA tenderness Skin General skin exam: no rashes or lesions noted Neuro General: patient oriented x3 Extrem General: Yes normal to inspection Psych Appearance: grossly normal and well kempt Mental Status: mental status grossly normal Speech and movement: Normal speech and movement present and Clear speech present Affect: normal affect Attitude: cooperative Thought process: Normal thought process present Thought content: Normal thought content present Insight: Fair insight present (Psych) Judgement: Fair judgement present (Psych) Results AMB Urinalysis, Automated UA Leukoctes 0 Seth/uL Last Edit by Keyona Flores on 11/25/24 09:05 UA Nitrite Last Edit by Keyona Flores on 11/25/24 09:05 UA Urobilinogen 0.2 mg/dL Last Edit by Keyona Flores on 11/25/24 09:05 UA Protein 0 mg/dL Last Edit by Keyona Flores on 11/25/24 09:05 UA pH 6.0 Last Edit by Keyona Flores on 11/25/24 09:05 UA Blood 80 Poncho/uL Last Edit by Keyona Flores on 11/25/24 09:05 UA Specific [place] 1.010 Last Edit by Keyona Flores on 11/25/24 09:05 UA Ketone Last Edit by Keyona Flores on 11/25/24 09:05 UA Bilirubin 0 mg/dL Last Edit by [employer] Flores on 11/25/24 09:05 UA Glucose 0 mg/dL Last Edit by [employer] Flores on 11/25/24 09:05 Results Reviewed Results Reviewed: Laboratory Last Values Urine pH (Auto) 6.0 11/25/24 08:55 Specific [place] (Auto) 1.010 11/25/24 08:55 Urine Protein (Auto) 0 mg/dL 11/25/24 08:55 Glucose (UA)(Auto) 0 mg/dL 11/25/24 08:55 Urine Blood (Auto) 80 Poncho/uL 11/25/24 08:55 Urine Bilirubin (Auto) 0 mg/dL 11/25/24 08:55 Urine Urobilinogen (Auto) 0.2 mg/dL 11/25/24 08:55 Leukocyte Esterase (Auto) 0 Seth/uL 11/25/24 08:55 Assessment & Plan Assessment & Plan (1) Elevated PSA: Code(s): R97.20 - Elevated prostate specific antigen [PSA] Category: Medical (2) Enlarged prostate: Code(s): N40.0 - Benign prostatic hyperplasia without lower urinary tract symptoms Category: Medical Plan In office urinalysis results reviewed with the patient today; as noted above; will send for urine cytology Recent PSA results reviewed with the patient today; as noted above. Patient currently denies any bothersome urinary issues or concerns. He reports be happy with current voiding parameters. Continue finasteride as discussed and prescribed. Follow-up in 4 months with PSA to be completed prior; or sooner with any issues, concerns, and or questions. Orders: Orders AMB Urinalysis Automated Today Z13.9 - Encounter for screening, unspecified Prostate Specific Antigen 4 Months N40.0 - Benign prostatic hyperplasia without lower urinary tract symptoms, R97.20 - Elevated prostate specific antigen [PSA] Urine Cytology Today R31.29 - Other microscopic hematuria Patient Instructions: The patient had an opportunity to ask questions regarding the treatment plan. All questions were answered. Physical exam, labs, and imaging were discussed and reviewed in detail. As well as risks, benefits, and discussion of treatment choices. No major barriers to understanding were identified. The patient expressed understanding and agreement with the above treatment plan. The patient was made aware they should contact our office by phone for worsening of their current condition, the appearance of new symptoms, or with any questions or concerns. Compliance is encouraged with any medications and follow up testing that is ordered. It is a privilege to be allowed the opportunity to participate in? your urological care.? Again, if you have any questions or concerns If you have any questions or concerns please do not hesitate to contact me. The office is [phone]. This note is constructed using voice recognition software. While every effort has been made to ensure accuracy templer head errors may have been included. Yours sincerely, MEL Anderson Coding Level of Care Code Est Pt Level 3 (66296) Complex EM visit Add On G2211 Diagnoses Elevated PSA R97.20 Enlarged prostate N40.0
== END 2024-11-25 09:15 | disposition home or self-care (01) ==
PROVIDERS: PCP Nurse Practitioner Family; Visit Provider Nurse Practitioner Family
DX: R97.20 Elevated prostate specific antigen [PSA] (principal); N40.0 Benign prostatic hyperplasia without lower urinary tract symptoms; Z13.9 Encounter for screening, unspecified
CPT/HCPCS: 99213; G2211

== ENCOUNTER 2024-11-28 08:00 | Outpatient (AMB) | payer MEDICARE, SELFPAY ==
[2024-11-28 08:08] VITALS: BP 110/72; PULSE 89; TEMP 36.9; O2SAT 96; BMI 29.1
--- NOTE | 2024-11-28 08:08 | AM.OFFWIN_ITS ---
Intake Vital Signs 11/28/24 08:08 Height 5 ft 10 in Weight 203 lb BMI 29.1 BP 110/72 Blood Pressure Location Lt brachial Position Sitting Pulse 89 Pulse Source Pulse Oximeter Temp 98.4 F Temp Source Oral Pulse Oximetry (%) 96 Oxygen Delivery Method Room Air Intake Visit Reasons: EP severe cough, headache Patient Tobacco Use Status: Never used Tobacco Allergies amlodipine Allergy (Severe, Verified 11/25/24 10:00) swelling Do you need a note to return to daycare/school/sports/work: No HPI HPI Comments History of Present Illness Details History - The patient is a 69-year-old male pres enting with persistent cough and shortness of breath. - The cough began approximately two to t hree weeks ago, occasionally productive, with recent escalation in severity. - On Sunday, increased phlegm and res piratory distress occurred, intensifying shortness of breath observed over the last two days. - The patient denied fever, significant congestion, asthma, or COPD history. - Previous pneumonia occurrence approxim ately two years prior prompts current concern. - Recent home cold test returned negativ e, and the patient records oxygen saturation consistent but slightly reduced from personal baseline. - No associated ear or sinus discomfort or pain was mentioned during the consultation. Physical Exam General: Cooperative, healthy appearing, comfortable and no acute distress Orientation/consciousness: Patient oriented x3 Limitations: No limitations Head: Normal to inspection Ears: Hearing grossly normal bilaterally, external ears normal and TM's normal bilaterally Nose: Normal external nose present, Normal nares present and No nasal discharge present Face and sinus: Normal facial exam and Yes sinuses nontender Mouth: Normal oral and palatal mucosa present and moist mucous membranes Throat: Yes tonsils normal, Yes uvula midline. Posterior oropharynx erythema Eyes: Appearance normal, both eyes and all related structures Neck: Normal visual inspection Respiratory: Clear to auscultation bilaterally. Normal respiratory effort, able to speak in complete sentences, Actively coughing, no respiratory distress, not tachypneic, no tripod positioning and no use of accessory muscles Cardiovascular: Regular rate and rhythm. Normal S1 and S2 Skin: No rashes or lesions noted Neuro: Patient oriented x3 Extremities: Normal to inspection and Yes no clubbing, cyanosis or edema PFSH Medical History Hepatitis C Hypertension Surgical History Hx of colonoscopy No pertinent past surgical history Family History Father No problems noted. Mother Gastric cancer Sister No problems noted. Son No problems noted. Son No problems noted. Daughter No problems noted. Brother No problems noted. Brother No problems noted. Brother No problems noted. Brother No problems noted. Social History Housing: House Alcohol intake: never Patient Tobacco Use Status: Never used Tobacco e-Cigarette/Vaping Use: Never Used Second Hand Smoke Exposure: No service: No Current occupational status: employed Cognitive needs: No Hearing needs: No Vision needs: No Review of Systems Const All systems reviewed & are unremarkable except as noted in HPI and below Physical Exam Vital Signs: Last Vital Signs Temp 98.4 F 11/28/24 08:08 Pulse 89 11/28/24 08:08 BP 110/72 11/28/24 08:08 Pulse Ox 96 11/28/24 08:08 Oxygen Delivery Method Room Air 11/28/24 08:08 BMI result Body Mass Index 29.1 Assessment & Plan Assessment & Plan (1) URI, acute: Code(s): J06.9 - Acute upper respiratory infection, unspecified Plan: O2 sat 95%, pt feeling short of breath. I will perform diagnostic tests for influenza, COVID-19, and RSV and obtain a chest radiograph to evaluate for poten tial pneumonia due to symptom similarity to previous episodes. To address the patient's acute cough and shortness of breath, I will prescribe Tessalon Perles at night for cough suppression and an inhaler for symptomatic relief during coughing episodes or shortness of breath, suggesting two puffs every four to six hours. A decongestant and antihistamine regimen is recommended to assist with nasal congestion. I will follow up with test results to determine if antibiotic treatment is needed based on findings from the chest radiograph. Patient was informed and verbally consented to the use of an ambient scribe for clinic note documentation during this visit Orders: Orders SARS-CoV2/FLU/RSV Today R09.89 - Other specified symptoms and signs involving the circulatory and respiratory systems XR chest 2V Today R05.9 - Cough, unspecified Medications: New albuterol sulfate 90 mcg/actuation 2 puffs inhalation Q6H PRN 8.5 grams 0RF shortness of breath or wheezing or cough benzonatate 200 mg PO BEDTIME PRN 10 caps 0RF cough Coding Level of Care Code Est Pt Level 4 (51341) Diagnoses URI, acute J06.9
== END 2024-11-28 08:40 | disposition home or self-care (01) ==
PROVIDERS: PCP Nurse Practitioner Family; Visit Provider Physician Assistant
DX: J06.9 Acute upper respiratory infection, unspecified (principal)

== ENCOUNTER 2024-11-28 08:00 | Outpatient (REF) | payer MEDICARE, SELFPAY ==
[2024-11-28 12:28] LABS: Influenza A PCR POSITIVE (Negative); Influenza B PCR NEGATIVE (Negative); Resp Syncy Virus RNA Qual PCR NEGATIVE (Negative); SARS COV2 PCR INHOUSE NEGATIVE (Negative)
== END 2024-11-28 08:01 | disposition home or self-care (01) ==
LOC: HO.LAB 08:00
PROVIDERS: Physician Assistant; PCP Nurse Practitioner Family
DX: Z13.89 Encounter for screening for other disorder (principal)
CPT/HCPCS: 0241U

== ENCOUNTER 2024-11-28 08:30 | Outpatient (REF) | payer MEDICARE, SELFPAY ==
--- NOTE | ~2024-11-28 | XR_ITS ---
EXAMINATION: XR CHEST CLINICAL INFORMATION: R05.9 - Cough, unspecified COMPARISON: December 04, 2022. TECHNIQUE: 2 views of the chest were obtained. FINDINGS: Mild prominence of the pulmonary hilum. Reticular pattern. No pleural effusion or pneumothorax. Cardiomediastinal silhouette size is normal. Multilevel thoracic spondylosis. Old traumatic deformity left clavicle. XR/XR chest 2V IMPRESSION: Prominence of the pulmonary hilum. The possibility of lymphadenopathy cannot be excluded. Electronically signed by: Doug Lobo MD 11/28/2024 08:48 AM EST
== END 2024-11-28 08:31 | disposition home or self-care (01) ==
LOC: HO.HMGCX 08:30
PROVIDERS: PCP Nurse Practitioner Family; Visit Provider Physician Assistant
DX: J06.9 Acute upper respiratory infection, unspecified (principal); R05.9 Cough, unspecified
CPT/HCPCS: 0241U; 71046; 99212

== ENCOUNTER → 2024-11-28 08:35 | Outpatient (BNV) | payer MEDICARE, SELFPAY | PROVIDERS: PCP Nurse Practitioner Family; Visit Provider Radiology Diagnostic Radiology | DX: R05.9 Cough, unspecified (principal) | CPT/HCPCS: 71046 ==

== ENCOUNTER 2025-03-04 08:46 | Outpatient (REF) | payer MEDICARE, SELFPAY ==
[2025-03-04 10:32] LABS: MANUAL DIFF FLAG NO
[2025-03-04 10:42] LABS: Basophils Absolute Auto 0.1 X10*3/uL (0.0-0.2); Basophils Percent Auto 0.7 % (0-2); Eosinophils Absolute Auto 0.3 X10*3/uL (0.0-0.4); Eosinophils Percent Auto 3.7 % (0-4); Hematocrit 38.3 % (42.0-52.0); Hemoglobin 13.1 g/dl (14.0-18.0); Imm Gran Abs Auto 0.03 X10*3/uL (0.00-0.03); Imm Gran Pct Auto 0.4 % (0.0-0.4); Lymphocytes Absolute Auto 2.4 X10*3/uL (1.2-4.9); Lymphocytes Percent Auto 34.2 % (20-40); Mean Corpuscular HGB Conc 34.2 g/dl (31.0-36.0); Mean Corpuscular Hemoglobin 32.4 pg (27.0-33.0); Mean Corpuscular Volume 94.8 fL (80.0-98.0); Mean Platelet Volume 9.9 fL (9.4-12.4); Monocytes Absolute Auto 0.7 X10*3/uL (0.1-1.2); Monocytes Percent Auto 9.8 % (2-11); Neutrophils Absolute Auto 3.6 x10*3/uL (2.0-8.3); Neutrophils Percent Auto 51.2 % (45-73); Platelet Count 210 X10*3/uL (160-400); Red Blood Count 4.04 X10*6/uL (4.60-5.80); Red Cell Distribution Width 13.4 % (11.0-16.0)
[2025-03-04 10:49] LABS: Appearance Urine Clear; Color Urine Yellow; Glucose Urine UA Negative (Negative); Leukocyte Esterase Urine Negative (Negative); Nitrite Urine Negative (Negative); PH 8.5 (5.0-9.0); Specific Gravity - Urine 1.015 (1.005-1.025); UMIC TRIGGER UACC YES; Urine Blood Small (1+) (Negative); Urine Ketones Negative (Negative); Urine Protein Negative (Neg-Trace)
[2025-03-04 10:53] LABS: Bacteria Urine None Seen (None Seen); Hyaline Casts Urine 0-2 /LPF (0-2); Squamous Epithelial Cell Urine 0-2 /HPF (0-2); WBC Urine 0-5 /HPF (0-5)
[2025-03-04 11:08] LABS: Alanine Aminotransferase 24 U/L (0-40); Albumin Level 4.5 g/dL (3.5-5.0); Alkaline Phosphatase 60 U/L (39-117); Anion Gap 11 (12-20); Aspartate Amino Transferase 31 U/L (5-37); Bilirubin Total 2.2 mg/dL (0.0-1.0); Blood Urea Nitrogen 14 mg/dL (9-16); Calcium 9.5 mg/dL (8.4-10.2); Carbon Dioxide 26 mmol/L (22-29); Chloride 102 mmol/L (96-108); Cholesterol 205 mg/dL (<200); Estimated Glomerular Filt Rate > 60; Glucose Fasting 88 mg/dL (60-99); HDL Cholesterol 66 mg/dL (>40); LDL Cholesterol Calculated 105 mg/dL (<100); Potassium 3.8 mmol/L (3.3-5.1); Sodium 135 mmol/L (135-145); Total Protein 7.6 g/dL (6.5-8.0); Triglycerides 172 mg/dL (<150)
== END 2025-03-04 08:47 | disposition home or self-care (01) ==
LOC: HO.HMGCLDS 08:46
PROVIDERS: PCP Nurse Practitioner Family; Visit Provider Nurse Practitioner Family
DX: I10 Essential (primary) hypertension (principal)
CPT/HCPCS: 36415; 80053; 80061; 81001; 84443; 85025

== ENCOUNTER 2025-03-09 08:54 | Outpatient (AMB) | payer MEDICARE, SELFPAY ==
--- NOTE | 2025-03-09 08:55 | A.OFFVIS_ITS ---
Intake Vital Signs 03/09/25 08:56 Height 5 ft 10 in Weight 200 lb 6 oz BMI 28.7 BP 118/66 Blood Pressure Location Rt brachial Position Sitting Respiration 18 Pulse 54 Pulse Source Pulse Oximeter Temp 98 F Temp Source Oral Pulse Oximetry (%) 100 Oxygen Delivery Method Room Air Intake Visit Reasons: SWV G4039 Intake Note: Pt is here today for SWV visit. Histology Technologist Required: No Accompanied by: Self / Same As Patient Allergies amlodipine Allergy (Severe, Verified 03/09/25 09:00) swelling Medication List - Last Reconciled 03/09/25 by MEL Rose albuterol sulfate 90 mcg/actuation 2 puffs inhalation Q6H PRN atorvastatin 10 mg PO BEDTIME benzonatate 200 mg PO BEDTIME PRN finasteride 5 mg PO DAILY 90 days hydrochlorothiazide 12.5 mg PO DAILY levothyroxine 150 mcg PO DAILY lisinopril 20 mg PO DAILY sildenafil 25 mg PO DAILY PRN tadalafil (Cialis) 5 mg PO DAILY 90 days Do you need a note to return to daycare/school/sports/work: No HPI SWV G4039 HPI Details AWV: PPP in scan pile. CCC not filled out HPI Comments History of Present Illness Details anemia: continuing to monitor. No signs of blood loss reported. SMall amt of micro hem noted. Pt denies any excessive fatigue. PFSH Medical History Hepatitis C Hypertension Surgical History Hx of colonoscopy No pertinent past surgical history Family History Father No problems noted. Mother Gastric cancer Sister No problems noted. Son No problems noted. Son No problems noted. Daughter No problems noted. Brother No problems noted. Brother No problems noted. Brother No problems noted. Brother No problems noted. Social History Housing: House Alcohol intake: never Patient Tobacco Use Status: Never used Tobacco e-Cigarette/Vaping Use: Never Used Second Hand Smoke Exposure: No service: No Current occupational status: employed Cognitive needs: No Hearing needs: No Vision needs: No Questionnaire Medicare Wellness Checkup [age] What gender do you identify with?: male During the past 4 weeks, how much have you been bothered by emotional problems such as feeling anxious, depressed, irritable, sad or downhearted, and blue?: not at all During the past 4 weeks, has your physical & emotional health limited your social activities with family, friends, neighbors, or groups?: not at all During the past 4 weeks, how much bodily pain have you generally had?: no pain During the past 4 weeks, was someone available to help you if you needed & wanted help?: yes, as much as I wanted During the past 4 weeks, what was the hardest physical activity you could do for at least 2 minutes?: heavy Can you get to places out of walking distance without help? (For eg., can you travel alone on buses, taxis or drive your car?): Yes Can you go shopping for groceries or clothes without someone's help?: Yes Can you prepare your own meals?: Yes Can you do your housework without help?: Yes Because of any health problems, do you need the help of another person with your personal care needs such as eating, bathing, dressing or getting around the michele se?: No Can you handle your own money without help?: Yes During the past 4 weeks, how would you rate your health in general?: very good During the past 4 weeks how have things been going for you?: pretty well Are you having difficulties driving your car?: no Do you always fasten your seat belt when you are in a car?: yes, usually During past 4 weeks, have you been bothered by the following: never: Falling or dizzy when standing up, Trouble eating well?, Teeth or denture problems? and Problems using the telephone? and seldom: Sexual problems? and Tiredness or fatigue? Have you fallen 2 or more times in the past year?: No Are you afraid of falling?: No Are you a smoker?: no During the past 4 weeks, how many drinks of wine, beer, or other alcoholic beve rages did you have?: 2-5 drinks per week Do you exercise for about 20 minutes 3 or more times a week?: yes, most of the time Have you been given information to help with the following?: no: Hazards in your house that might hurt you? and no: Keeping track of your medications? How often do you have trouble taking medicines the way you have been told to take them?: I always take medicine as prescribed How confident are you that you can control & manage most of your health problems?: somewhat confident What is your race?: White Mini Mental State Exam (MMSE) Orientation What is the (year) (season) (date) (day) (month)?: year, season, date, day and month Where are we (state) (county) (town or city) (hospital) (floor)?: state, county, town or city, hospital/clinic and floor Registration Name of 3 unrelated objects clearly and slowly, then ask patient to repeat all 3 of them. (1st repeat determines score. Make sure they can repeat all three): object 1, object 2 and object 3 Attention & Calculation (CHOOSE ONE) Spell WORLD backwards (DLROW): 5 letters Recall Ask patient to repeat the 3 items from question #3.: object 1, object 2 and object 3 Language Show patient a wristwatch & ask what it is. Repeat for pencil.: watch Ask the patient to repeat the phrase 'No ifs, ands, or buts' after you.: correct Ask the patient to 'take a piece of paper with their right hand' 'fold paper in half' 'place paper on floor': take paper in right hand, fold paper in half and place paper on floor Print the sentence 'CLOSE YOUR EYES' on a piece. If patient actually closes eyes then score.: followed written direction Give patient a blank piece of paper & ask to write a sentence. Score if it c ontains a noun & verb.: sentence contains subject and verb Ask patient to copy figure of intersecting pentagons exactly. Score if all 10 angles & 2 intersects are included.: all 10 angles present & 2 are intersected Score Score: 29 Activity of Daily Living Bathing - sponge bath, tub bath or shower: receives no assistance (gets in/out by self, if usual bathing means Dressing - getting clothes from closets & drawers, including inner/outer garments & fasteners.: gets clothes & gets completely dressed without help Toileting - going to the 'toilet room' for urine/bowel elimination & cleaning self/arranging clothes: goes to toilet room, cleans self, arranges clothes without help Transfer: moves in & out of bed and chair without help (may use support object) Continence: controls urination/bowel movements completely by self Feeding: feeds self without help Total Score: 0 Information obtained from: patient Using telephone: independent Traveling: independent Shopping: independent Preparing meals: independent Housework: independent Taking medicine: independent Managing money: independent PHQ-9 Over the last 2 weeks, how often have you been bothered by any of the following problems? 1. Little interest or pleasure in doing things: not at all 2. Feeling down, depressed, or hopeless: not at all 3. Trouble falling or staying asleep, or sleeping too much: not at all 4. Feeling tired or having little energy: not at all 5. Poor appetite or overeating: not at all 6. Feeling bad about yourself - or that you are a failure or have let yourself or your family down: not at all 7. Trouble concentrating on things, such as reading the newspaper or watching television: not at all 8. Moving or speaking so slowly that other people could have noticed. Or the opposite - being so fidgety or restless that you have been moving around a lot more than usual: not at all 9. Thoughts that you would be better off or of hurting yourself in some way: not at all Total score: 0 Depression Screening Interpretation: Negative Depression Screening Done: Yes 41643 - PHQ-9 Billing: Yes Source: Developed by Drs. Sundar Wright, Natalee Wolfe, Artemio Reynoso and colleagues, with an educational som from [employer]. IGGY-7 AMB Questionnaire IGGY-7 Date IGGY - 7 assessed: 03/09/25 Feeling nervous, anxious, or on edge: 0 = Not at all Not being able to stop or control worryin = Not at all Worrying too much about different things: 0 = Not at all Trouble relaxin = Not at all Being so restless that it is hard to sit still: 0 = Not at all Becoming easily annoyed or irritable: 0 = Not at all Feeling afraid as if something awful might happen: 0 = Not at all Total IGGY-7 score (0-4 normal; 5-9 mild; 10-14 moderate; 15-21 severe): 0 Source: Developed by Drs. Sundar Wright, Natalee Wolfe, Artemio Reynoso and colleagues, with an educational som from [employer]. IGGY-7 Assessment Billing IGGY-7 Assessment Tool: IGGY-7 Assessment 60002 Physical Exam Vital Signs: Last Vital Signs Temp 98 F 03/09/25 08:56 Pulse 54 03/09/25 08:56 Resp 18 03/09/25 08:56 BP 118/66 03/09/25 08:56 Pulse Ox 100 03/09/25 08:56 Oxygen Delivery Method Room Air 03/09/25 08:56 BMI result Body Mass Index 28.7 Resp Effort & Inspection: normal respiratory effort Auscultation: clear to auscultation bilaterally Cardio Rate: regular rate Rhythm: regular rhythm Heart sounds: S1 normal heart sound present, S2 normal heart sound present and no murmurs Neuro Other: able to stand from sitting position, able to tandem walk, neg rhomberg, + whisper test Assessment & Plan Assessment & Plan (1) Anemia: Code(s): D64.9 - Anemia, unspecified (2) Encounter for annual wellness visit (AWV) in Medicare patient: Code(s): Z00.00 - Encounter for general adult medical examination without abnormal findings Plan . Orders: Orders Comprehensive Met. Panel Today D64.9 - Anemia, unspecified Hemoglobin Electrophoresis Today D64.9 - Anemia, unspecified Vitamin B12 and Folate Today D64.9 - Anemia, unspecified Complete Blood Count Auto Diff Today D64.9 - Anemia, unspecified Lactate Dehydrogenase Today D64.9 - Anemia, unspecified Reticulocyte Count Today D64.9 - Anemia, unspecified Ferritin Today D64.9 - Anemia, unspecified IRON PROFILE Today D64.9 - Anemia, unspecified Quality Reporting (2019) Depression/Bipolar (159/160/161/177) PHQ-9: Total score: 0 Coding Level of Care Code Medicare Subsequent (G0439) Est Pt Level 3 (54624) Diagnoses Anemia D64.9 Encounter for annual wellness visit (AWV) in Medicare patient Z00.00 CPT Codes Advance Care Planning - Time spent: 1-15 minutes, on File ([id number]) Additional Codes IGGY-7 Assessment Billing - IGGY-7 Assessment Tool: IGGY-7 Assessment 62071 ([id number]) PHQ-9 - 18106 - PHQ-9 Billing: Yes ([id number]) Advance Care Planning Forms completed: Health Care Proxy (scanned, done), MOLST (scanned done) and Living will (done according to pt) Time spent: 1-15 minutes, on File Actual minutes spent: 8
[2025-03-09 08:56] VITALS: BP 118/66; PULSE 54; RESP 18; TEMP 36.6; O2SAT 100; BMI 28.7
== END 2025-03-09 10:09 | disposition home or self-care (01) ==
LOC: HO.HMCC 08:55
PROVIDERS: PCP Nurse Practitioner Family; Visit Provider Nurse Practitioner Family
DX: Z00.00 Encounter for general adult medical examination without abnormal findings (principal); D64.9 Anemia, unspecified; Z23 Encounter for immunization

== ENCOUNTER → 2025-03-09 08:54 | Outpatient (BNVA) | payer MEDICARE, SELFPAY | PROVIDERS: PCP Nurse Practitioner Family; Visit Provider Nurse Practitioner Family | DX: Z00.00 Encounter for general adult medical examination without abnormal findings (principal); Z23 Encounter for immunization; D64.9 Anemia, unspecified | CPT/HCPCS: 90471; 90677; 96127; 99212 ==

== ENCOUNTER 2025-03-17 07:00 | Day surgery (SDC) | payer MEDICARE, SELFPAY ==
[2025-03-13 14:11] VITALS: BMI 28.7
--- NOTE | 2025-03-16 12:34 | P.CONAN_ITS ---
Documented by User: Hermila Gilmore NP 03/16/25 12:34 HPI - Anesthesia Eval Consult details Narrative: 69yo M for Colonoscopy PMFSH Active Problems Active Problems: All Active Problems URI, acute (Acute) Encounter for annual wellness visit (AWV) in Medicare patient (Acute) Screening for colon cancer (Acute) Bladder trabeculation (Acute) Anemia (Acute) Dyslipidemia (Acute) Microscopic hematuria (Acute) Enlarged prostate (Acute) Elevated PSA (Acute) Cough (Acute) Hypothyroidism (Acute) Physical exam (Acute) Chronic sinusitis (Acute) Cough (Acute) Allergic rhinitis (Acute) Hypertension (Acute) Past Medical History Medical History (Updated 03/13/25 @ 14:11 by Jenny Farley RN) Anemia Dyslipidemia Hypothyroid Hepatitis C Hypertension Family History Family History Father No problems noted. Mother Gastric cancer Sister No problems noted. Son No problems noted. Son No problems noted. Daughter No problems noted. Brother No problems noted. Brother No problems noted. Brother No problems noted. Brother No problems noted. Surgical History Surgical History (Updated 03/13/25 @ 14:09 by Jenny Farley RN) Hx of colonoscopy Social History Social History Housing: House Alcohol intake: never Patient Tobacco Use Status: Never used Tobacco e-Cigarette/Vaping Use: Never Used Second Hand Smoke Exposure: No Have you been hit, kicked, punched, or otherwise hurt by someone within the past year? If so, by whom?: No Are you DNR?: No Advance Directives: No Advance Directives Information Provided: Yes service: No Current occupational status: employed Cognitive needs: No Hearing needs: No Vision needs: No Meds Allergies Allergy/AdvReac Type Severity Reaction Status Date / Time amlodipine Allergy Severe swelling Verified 03/09/25 09:00 Exam Height,Weight and Vital Signs: Height 5 ft 10 in Weight 90.718 kg Assessment and Plan Assessment Anesthesia Assessment: Chart Reviewed Documented by User: Neal Slaughter MD 03/17/25 08:36 [facility] Past Medical History Medical History (Updated 03/13/25 @ 14:11 by Jenny Farley RN) Anemia Dyslipidemia Hypothyroid Hepatitis C Hypertension Family History Family History Father No problems noted. Mother Gastric cancer Sister No problems noted. Son No problems noted. Son No problems noted. Daughter No problems noted. Brother No problems noted. Brother No problems noted. Brother No problems noted. Brother No problems noted. Family history of problems with anesthesia: No Surgical History Surgical History (Updated 03/13/25 @ 14:09 by Jenny Farley RN) Hx of colonoscopy History of Problems with Anesthesia: No Social History Social History Housing: House Alcohol intake: never Patient Tobacco Use Status: Never used Tobacco e-Cigarette/Vaping Use: Never Used Second Hand Smoke Exposure: No Have you been hit, kicked, punched, or otherwise hurt by someone within the past year? If so, by whom?: No Are you DNR?: No Advance Directives: No Advance Directives Information Provided: Yes service: No Current occupational status: employed Cognitive needs: No Hearing needs: No Vision needs: No Meds Allergies Allergy/AdvReac Type Severity Reaction Status Date / Time amlodipine Allergy Severe swelling Verified 03/09/25 09:00 Exam Airway Mallampati Class: II TM Dist: >3cm Neck ROM: Full Loose/Missing/Broken Teeth: No Heart: ok Lungs: ok Assessment and Plan Assessment Anesthesia Assessment: Anesthesia Plan Discussed Final Anesthetic Review Family History of Problems with Anesthesia: No History of Problems with Anesthesia: No NPO: Yes ASA Class: II Final Preanesthetic Review: No Changes in Pt Med Stat, Meds/Allgs Chart Reviewed, Consent Obtained/Reviewed and Anes Risks/Benef Reviewed Patient Risk: Intermediate Procedure Risk: Low Anesthetic Plan Anesthetic Plan: MAC: and Agree w/ Assess. and Plan Disposition: Standard PACU
[2025-03-17 07:09] VITALS: BP 149/88; PULSE 54; RESP 19; TEMP 36.9; O2SAT 97; BMI 28.7
[2025-03-17] MEDS: Lactated Ringers 1,000 ML 100 ML IVCONT (07:27)
--- NOTE | 2025-03-17 08:08 | MHC.SHP ---
Pre-Procedural Eval Section A - 24 Hr Update-Section A only Date of Service: 03/17/25 Section B - Complete if H&P > 30 days Chief Complaint: Encounter for screening for malignant neoplasm of Relevant Family History (Specify if Yes): No Relevant Social History: None Present Medications: see Short Stay Collaborative assessment Medical History: Significant History (Anemia Dyslipidemia Hypothyroid Hepatitis C Hypertension) History of Previous Operations: Relevant previous surgery/procedure and date(s) (Hx of colonoscopy) Allergies: Allergies Allergy/AdvReac Type Severity Reaction Status Date / Time amlodipine Allergy Severe swelling Verified 03/09/25 09:00 Review of Systems Sugical H&P ROS: Negative: Constitution, Cardiovascular, Respiratory, Neurological, Psychiatric, Hem-Onc, Allergic/Immunologic, Gastrointestinal, Genitourinary, Musculoskeletal, Integumentary, Endocrine and Eyes/Ears/Nose/Throat Exam Surgical H&P Exam: Normal: HEENT, Normal: Heart, Normal: Lungs, Normal: Extremities, Normal: Abdomen, Normal: Skin and Normal: Neurological Plan Diagnosis/Plan: Unchanged I have reviewed the history and physical and performed a pertinent physical examination on my patient. No changes have occurred unless specified. Time Spent With Patient Time: Total time managing care of this patient today ____ minutes.
--- NOTE | 2025-03-17 08:40 | P.OPN-COLO_ITS ---
Colonoscopy Operative Note Operative Note Date of Service: 03/17/25 Narrative: Operative Information Procedure Description: Colonoscopy Indication: screening Anesthesia: MAC COLONOSCOPY Instrument: Olympus variable stiffness pediatric scope 190L Colonoscopy Monitoring: Vital signs and clinical assessment, continuous EKG monitoring, Pulse oximetry, Carbon Dioxide monitoring and blood pressure monitoring were done throughout the procedure. Colon withdrawal time was 11 minutes. Procedure: The patient was placed in the left lateral decubitis position and pre-procedure medications were administered. After a digital rectal examination of the ano-rectum, the video colonoscope was inserted into the rectum and advanced through the colon to the cecum/TI. The colonoscope was slowly withdrawn in a retrograde panoramic fashion and the colon mucosa was carefully examined including a retroflexed view of the rectum. Findings and interventions are described below. Procedure Difficulty: easy Findings: Terminal Ileum-normal Cecum: 4-6 mm sessile polyp removed with cold forceps Ascending Colon: x 2 sessile poylps 4-6 mm removed with cold forceps and x 2 sessile polyps 7-8 mm removed with cold snare Transverse Colon -normal Descending Colon:normal Sigmoid Colon: mild diverticulosis Rectum: Retroflexion with small to medium internal hemorrhoids seen, grade I Anorectum - normal Intervention: cold forceps, cold snare Colon preparation: [place] Bowel Preparation Scale Right colon; 2 Transverse colon: 2 Left colon; 2 (0 = Unprepared colon segment with mucosa not seen due to solid stool that cannot be cleared. 1 = Portion of mucosa of the colon segment seen, but other areas of the colon segment not well seen due to staining, residual stool and/or opaque liquid. 2 = Minor amount of residual staining, small fragments of stool and/or opaque liquid, but mucosa of colon segment seen well. 3 = Entire mucosa of colon segment seen well with no residual staining, small fragments of stool or opaque liquid) Impression and Post Procedure Diagnosis: diverticulosis colon polyps x 5 internal hemorrhoids Plan: High fiber diet leaflet Avoid straining at stool, epsom salts and sitz bath, anusol supps or cream Repeat Colonoscopy in 3-4 years or earlier if clinically indicated Above findings were reviewed with the patient and relevant handouts were provided if indicated.
[2025-03-17 08:45] VITALS: BP 118/68; PULSE 45; RESP 18; TEMP 36.8; O2SAT 97
[2025-03-17 09:00] VITALS: BP 138/81; PULSE 47; RESP 18; TEMP 36.4; O2SAT 100
== END 2025-03-17 09:48 | disposition home or self-care (01) ==
PROVIDERS: PCP Nurse Practitioner Family; Visit Provider Internal Medicine Gastroenterology
PROC: 0DJD8ZZ Inspection of Lower Intestinal Tract, Via Natural or Artificial Opening Endoscopic (ICD-10-PCS; CPT 45378; principal; 2025-03-17 08:20)
DX: Z12.11 Encounter for screening for malignant neoplasm of colon (principal); D12.0 Benign neoplasm of cecum; D12.2 Benign neoplasm of ascending colon; K57.30 Diverticulosis of large intestine without perforation or abscess without bleeding; K64.0 First degree hemorrhoids; I10 Essential (primary) hypertension; E78.5 Hyperlipidemia, unspecified; E03.9 Hypothyroidism, unspecified; D64.9 Anemia, unspecified; B19.20 Unspecified viral hepatitis C without hepatic coma; Z79.02 Long term (current) use of antithrombotics/antiplatelets; Z79.899 Other long term (current) drug therapy
CPT/HCPCS: 45385; 45380; 88305; J2003; J2704

== ENCOUNTER → 2025-03-17 07:00 | Outpatient (BNV) | payer MEDICARE, SELFPAY | PROVIDERS: PCP Nurse Practitioner Family; Visit Provider Internal Medicine Gastroenterology | DX: Z12.11 Encounter for screening for malignant neoplasm of colon (principal); K63.5 Polyp of colon; K57.90 Diverticulosis of intestine, part unspecified, without perforation or abscess without bleeding; K64.0 First degree hemorrhoids | CPT/HCPCS: 45380; 45385 ==

== ENCOUNTER 2025-03-24 09:06 | Outpatient (REF) | payer MEDICARE, SELFPAY ==
[2025-03-24 11:33] LABS: Prostate Specific Antigen 3.38 ng/mL (<0.05-4.0)
== END 2025-03-24 09:07 | disposition home or self-care (01) ==
LOC: HO.HMGCLDS 09:06
PROVIDERS: PCP Nurse Practitioner Family; Visit Provider Nurse Practitioner Family
DX: R97.20 Elevated prostate specific antigen [PSA] (principal); N40.0 Benign prostatic hyperplasia without lower urinary tract symptoms; Z12.5 Encounter for screening for malignant neoplasm of prostate
CPT/HCPCS: 36415; 84153

== ENCOUNTER 2025-03-30 08:21 | Outpatient (AMB) | payer MEDICARE, SELFPAY ==
--- NOTE | 2025-03-30 08:29 | MHC.OFFVIS ---
Intake Visit Reasons: 4m/PSA Intake Note: Patient presents for follow up visit for Elevated PSA and psa results PSA: 3.38 Urology Medications: Finasteride, sildenafil, tadalafil Blood Thinner: none Manager Health Required: No Accompanied by: Self / Same As Patient Allergies amlodipine Allergy (Severe, Verified 03/30/25 08:40) swelling HPI Comments Details: José Miguel is a very pleasant 70-year-old male patient of Dr. Bowen. He has a past medical history of hep C and hypertension. He presents to the office today for follow-up of his elevated PSA and microscopic hematuria. In discussion with the patient today he reports to be doing and feeling well. He reports compliance with finasteride as prescribed. Recent PSA results reviewed with the patient today as noted and trended below. Previous workup has included a retroperitoneal ultrasound 01/15 noting bilateral kidneys with no hydronephrosis or lesions noted. The bladder is well distended. Bilateral ureteral jets are demonstrated. Pre void bladder volume is approximately 175 mL. Postvoid bladder volume is approximately 70 mL. Mild bladder wall trabeculations are noted. Prostate volume is approximately 26 mL. 03/15 3.6, 11/16 5.0, 10/17 4.7, 12/15 5.5 % free PSA 15%, 05/17 2.1, 09/16 3.6, 11/18 3.1, 04/17 3.4 When asked he denies any urinary issues or concerns. He reports nocturia 2 times per night however does not find this bothersome. In office urinalysis results reviewed with the patient today. 2+ microscopic hematuria however patient reports having previously followed up with Dr. Larson and undergoing workup for microscopic hematuria with no abnormal findings. Urine cytologies are as follows: 02/14 & 06/17 negative for high-grade urethral carcinoma 11/17 & 12/16 atypical urethral cells We did discussed at length potential causes of microscopic hematuria as well as further workup to include repeat imaging and cystoscopy. Risks and benefits of these interventions were discussed. We also discussed slight increase in PSA. We did discuss further workup to include MRI of the prostate verses surveillance monitoring verses prostate biopsy. Risks and benefits of these interventions were discussed. We will continue with surveillance monitoring at this time of PSA as well as microscopic hematuria. He denies any previous history of workplace chemical exposure and or smoking history. He currently denies any bothersome urinary issues or concerns. He reports low-dose tadalafil and p.r.n. Viagra to be working well for his erections. When asked he denies urinary urgency, urinary frequency, incontinence, visible/gross hematuria, dysuria, foul smelling urine, changes to urinary stream, flank pain, fever, and or chills. He is happy with his current voiding parameters. All questions were answered. He otherwise offers no other issues or concerns at this time. [facility] Medical History Anemia Dyslipidemia Hypothyroid Hepatitis C Hypertension Surgical History Hx of colonoscopy Family History Father No problems noted. Mother Gastric cancer Sister No problems noted. Son No problems noted. Son No problems noted. Daughter No problems noted. Brother No problems noted. Brother No problems noted. Brother No problems noted. Brother No problems noted. Social History Housing: House Alcohol intake: never Patient Tobacco Use Status: Never used Tobacco e-Cigarette/Vaping Use: Never Used Second Hand Smoke Exposure: No service: No Current occupational status: employed Cognitive needs: No Hearing needs: No Vision needs: No Review of Systems Const All systems reviewed & are unremarkable except as noted in HPI and below Physical Exam Const General: cooperative, healthy appearing, comfortable, no acute distress, well developed, alert and awake Orientation/consciousness: patient oriented x3 Limitations: no limitations HEENT Head: Yes normal to inspection, Yes normocephalic and Yes atraumatic Ears: hearing grossly normal bilaterally Eyes General: appearance normal, both eyes and all related structures Neck Neck: Yes normal visual inspection and Yes trachea midline Chest Chest palpation & inspection: normal inspection of the chest Resp Effort & Inspection: normal respiratory effort and able to speak in complete sentences Cardio Rate: regular rate GI Inspection: Yes normal to inspection General: Yes no CVA tenderness Back/Spine/Pelvis Back: no CVA tenderness Skin General skin exam: no rashes or lesions noted Neuro General: patient oriented x3 Extrem General: Yes normal to inspection Psych Appearance: grossly normal and well kempt Mental Status: mental status grossly normal Speech and movement: Normal speech and movement present and Clear speech present Affect: normal affect Attitude: cooperative Thought process: Normal thought process present Thought content: Normal thought content present Insight: Fair insight present (Psych) Judgement: Fair judgement present (Psych) Results AMB Urinalysis, Automated UA Leukoctes 0 Seth/uL Last Edit by Keyona Flores [facility] on 03/30/25 08:42 UA Nitrite Last Edit by Keyona Flores [facility] on 03/30/25 08:42 UA Urobilinogen 0.2 mg/dL Last Edit by Keyona Flores [facility] on 03/30/25 08:42 UA Protein 0 mg/dL Last Edit by Keyona Flores [facility] on 03/30/25 08:42 UA pH 7.0 Last Edit by Keyona Flores [facility] on 03/30/25 08:42 UA Blood 80 Poncho/uL Last Edit by Keyona Flores [facility] on 03/30/25 08:42 UA Specific [place] 1.010 Last Edit by Keyona Flores [facility] on 03/30/25 08:42 UA Ketone Last Edit by Keyona Flores [facility] on 03/30/25 08:42 UA Bilirubin 0 mg/dL Last Edit by Keyona Flores [facility] on 03/30/25 08:42 UA Glucose 0 mg/dL Last Edit by Keyona Flores [facility] on 03/30/25 08:42 Results Reviewed Results Reviewed: Laboratory Last Values Urine pH (Auto) 7.0 03/30/25 08:41 Specific [place] (Auto) 1.010 03/30/25 08:41 Urine Protein (Auto) 0 mg/dL 03/30/25 08:41 Glucose (UA)(Auto) 0 mg/dL 03/30/25 08:41 Urine Blood (Auto) 80 [place]cho/uL 03/30/25 08:41 Urine Bilirubin (Auto) 0 mg/dL 03/30/25 08:41 Urine Urobilinogen (Auto) 0.2 mg/dL 03/30/25 08:41 Leukocyte Esterase (Auto) 0 Seth/uL 03/30/25 08:41 Assessment & Plan Assessment & Plan (1) Elevated PSA: Code(s): R97.20 - Elevated prostate specific antigen [PSA] Category: Medical (2) Enlarged prostate: Code(s): N40.0 - Benign prostatic hyperplasia without lower urinary tract symptoms Category: Medical (3) Microscopic hematuria: Code(s): R31.29 - Other microscopic hematuria Category: Medical (4) Bladder trabeculation: Code(s): N32.89 - Other specified disorders of bladder Category: Medical Plan In office urinalysis results reviewed with the patient today; as noted above; will send for urine cytology. Will continue with surveillance monitoring of microscopic hematuria as well as PSAs. He currently denies any bothersome urinary issues or concerns. He reports be happy with current voiding parameters. Continue urological medications as prescribed. We did discuss further treatment options of microscopic hematuria as well as increase in PSA. Will obtain PSA in 3-4 months. Follow-up in 3-4 months with PSA; or sooner with any issues, concerns, and or questions. Orders: Orders PSA,Total (Free>4and<10) 3 Months N40.0 - Benign prostatic hyperplasia without lower urinary tract symptoms, R97.20 - Elevated prostate specific antigen [PSA] AMB Urinalysis Automated Today Z13.9 - Encounter for screening, unspecified Urine Cytology Today R31.29 - Other microscopic hematuria Patient Instructions: The patient had an opportunity to ask questions regarding the treatment plan. All questions were answered. Physical exam, labs, and imaging were discussed and reviewed in detail. As well as risks, benefits, and discussion of treatment choices. No major barriers to understanding were identified. The patient expressed understanding and agreement with the above treatment plan. The patient was made aware they should contact our office by phone for worsening of their current condition, the appearance of new symptoms, or with any questions or concerns. Compliance is encouraged with any medications and follow up testing that is ordered. It is a privilege to be allowed the opportunity to participate in? your urological care.? Again, if you have any questions or concerns If you have any questions or concerns please do not hesitate to contact me. The office is [phone]. This note is constructed using voice recognition software. While every effort has been made to ensure accuracy full decator operator errors may have been included. Yours sincerely, Erna Mar, [employer] Coding Level of Care Code Est Pt Level 3 (00606) Complex EM visit Add On G2211 Diagnoses Elevated PSA R97.20 Enlarged prostate N40.0 Microscopic hematuria R31.29 Bladder trabeculation N32.89
== END 2025-03-30 09:09 | disposition home or self-care (01) ==
LOC: HO.HUSH 08:22
PROVIDERS: PCP Nurse Practitioner Family; Visit Provider Nurse Practitioner Family
DX: R97.20 Elevated prostate specific antigen [PSA] (principal); N40.0 Benign prostatic hyperplasia without lower urinary tract symptoms; R31.29 Other microscopic hematuria; N32.89 Other specified disorders of bladder; Z13.9 Encounter for screening, unspecified
CPT/HCPCS: 99213; G2211

== ENCOUNTER 2025-03-30 08:21 | Outpatient (REF) | payer MEDICARE, SELFPAY | END 2025-03-30 08:22 | disposition home or self-care (01) | LOC: HO.LNP 08:21 | PROVIDERS: PCP Nurse Practitioner Family; Visit Provider Nurse Practitioner Family | DX: R31.29 Other microscopic hematuria (principal); R97.20 Elevated prostate specific antigen [PSA] | CPT/HCPCS: 81003; 88112; 99212 ==

== ENCOUNTER 2025-07-25 08:51 | Outpatient (REF) | payer MEDICARE, SELFPAY ==
[2025-07-25 12:07] LABS: PSA,Total (Free>4and<10) 2.99 ng/mL (0.00-4.00)
== END 2025-07-25 08:52 | disposition home or self-care (01) ==
LOC: HO.HMGCLDS 08:51
PROVIDERS: PCP Nurse Practitioner Family; Visit Provider Nurse Practitioner Family
DX: N40.0 Benign prostatic hyperplasia without lower urinary tract symptoms (principal); R97.20 Elevated prostate specific antigen [PSA]; Z12.5 Encounter for screening for malignant neoplasm of prostate
CPT/HCPCS: 36415; 84153

== ENCOUNTER 2025-08-05 08:20 | Outpatient (REF) | payer MEDICARE, SELFPAY | END 2025-08-05 08:21 | disposition home or self-care (01) | LOC: HO.LAB 08:20 | PROVIDERS: PCP Nurse Practitioner Family; Visit Provider Nurse Practitioner Family | DX: R97.20 Elevated prostate specific antigen [PSA] (principal); N40.1 Benign prostatic hyperplasia with lower urinary tract symptoms; R31.29 Other microscopic hematuria; N32.89 Other specified disorders of bladder; Z79.899 Other long term (current) drug therapy | CPT/HCPCS: 81003; 88112; 99212 ==

== ENCOUNTER 2025-08-05 08:20 | Outpatient (AMB) | payer MEDICARE, SELFPAY ==
--- NOTE | 2025-08-05 08:32 | A.OFFVIS_ITS ---
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 Bowen. He has a past medical history of hep C and hypertension. He presents to the office today for follow-up of his elevated PSA and microscopic hematuria. In discussion with the patient today he reports to be doing and feeling well. He reports compliance with finasteride as prescribed. Recent PSA results reviewed with the patient today as noted and trended below. Previous workup has included a retroperitoneal ultrasound 01/15 noting bilateral kidneys with no hydronephrosis or lesions noted. The bladder is well distended. Bilateral ureteral jets are demonstrated. Pre void bladder volume is approximately 175 mL. Postvoid bladder volume is approximately 70 mL. Mild bladder wall trabeculations are noted. Prostate volume is approximately 26 mL. 03/15 3.6, 11/16 5.0, 10/17 4.7, 12/15 5.5 % free PSA 15%, 05/17 2.1, 09/16 3.6, 11/18 3.1, 04/17 3.4, 08/18 3.0 When asked he denies any urinary issues or concerns. He reports nocturia 2 times per night however does not find this bothersome. In office urinalysis results reviewed with the patient today. 1+ microscopic hematuria however patient reports having previously followed up with Dr. Larson and undergoing workup for microscopic hematuria with no abnormal findings. Urine cytologies are as follows: 02/14 & 06/17& 04/17 negative for high-grade urethral carcinoma, 11/17 & 12/16 atypical urethral cells We did discussed at length potential causes of microscopic hematuria as well as further workup to include repeat imaging and cystoscopy. Risks and benefits of these interventions were discussed. We also discussed slight decrease in PSA. We did discuss further workup to include MRI of the prostate verses surveillance monitoring verses prostate biopsy. Risks and benefits of these interventions were discussed. We will continue with surveillance monitoring at this time of PSA as well as microscopic hematuria. He denies any previous history of workplace chemical exposure and or smoking history. He currently denies any bothersome urinary issues or concerns. He reports low-dose tadalafil and p.r.n. Viagra to be working well for his erections. When asked he denies urinary urgency, urinary frequency, incontinence, visible/gross hematuria, dysuria, foul smelling urine, changes to urinary stream, flank pain, fever, and or chills. He is happy with his current voiding parameters. All questions were answered. He otherwise offers no other issues or concerns at this time. [facility] Medical History Anemia Dyslipidemia Hypothyroid Hepatitis C Hypertension Surgical History Hx of colonoscopy Family History Father No problems noted. Mother Gastric cancer Sister No problems noted. Son No problems noted. Son No problems noted. Daughter No problems noted. Brother No problems noted. Brother No problems noted. Brother No problems noted. Brother No problems noted. Social History Housing: House Alcohol intake: never Patient Tobacco Use Status: Never used Tobacco e-Cigarette/Vaping Use: Never Used Second Hand Smoke Exposure: No service: No Current occupational status: employed Cognitive needs: No Hearing needs: No Vision needs: No Review of Systems Const All systems reviewed & are unremarkable except as noted in HPI and below Physical Exam Const General: cooperative, healthy appearing, comfortable, no acute distress, well developed, alert and awake Orientation/consciousness: patient oriented x3 Limitations: no limitations HEENT Head: Yes normal to inspection, Yes normocephalic and Yes atraumatic Ears: hearing grossly normal bilaterally Eyes General: appearance normal, both eyes and all related structures Neck Neck: Yes normal visual inspection and Yes trachea midline Chest Chest palpation & inspection: normal inspection of the chest Resp Effort & Inspection: normal respiratory effort and able to speak in complete sentences Cardio Rate: regular rate GI Inspection: Yes normal to inspection General: Yes no CVA tenderness Back/Spine/Pelvis Back: no CVA tenderness Skin General skin exam: no rashes or lesions noted Neuro General: patient oriented x3 Extrem General: Yes normal to inspection Psych Appearance: grossly normal and well kempt Mental Status: mental status grossly normal Speech and movement: Normal speech and movement present and Clear speech present Affect: normal affect Attitude: cooperative Thought process: Normal thought process present Thought content: Normal thought content present Insight: Fair insight present (Psych) Judgement: Fair judgement present (Psych) Results AMB Urinalysis, Automated UA Leukoctes 0 Seth/uL Last Edit by MARY Lawson on 08/05/25 08:46 UA Nitrite Negative Last Edit by MARY Lawson on 08/05/25 08:46 UA Urobilinogen 0.2 mg/dL Last Edit by MARY Lawson on 08/05/25 08:4 6 UA Protein 0 mg/dL Last Edit by MARY Lawson on 08/05/25 08:46 UA pH 6.5 Last Edit by MARY Lawson on 08/05/25 08:46 UA Blood 25 [place]/uL Last Edit by MARY Lawson on 08/05/25 08:46 UA Specific [place] 1.010 Last Edit by MARY Lawson on 08/05/25 08: 46 UA Ketone Negative Last Edit by MARY Lawson on 08/05/25 08:46 UA Bilirubin 0 mg/dL Last Edit by MARY Lawson on 08/05/25 08:46 UA Glucose 0 mg/dL Last Edit by MARY Lawson on 08/05/25 08:46 Results Reviewed Results Reviewed: Laboratory Last Values Urine pH (Auto) 6.5 08/05/25 08:36 Specific [place] (Auto) 1.010 08/05/25 08:36 Urine Protein (Auto) 0 mg/dL 08/05/25 08:36 Glucose (UA)(Auto) 0 mg/dL 08/05/25 08:36 Urine Ketones (Auto) Negative 08/05/25 08:36 Urine Blood (Auto) 25 [place]/uL 08/05/25 08:36 Urine Nitrite (Auto) Negative 08/05/25 08:36 Urine Bilirubin (Auto) 0 mg/dL 08/05/25 08:36 Urine Urobilinogen (Auto) 0.2 mg/dL 08/05/25 08:36 Leukocyte Esterase (Auto) 0 Seth/uL 08/05/25 08:36 Assessment & Plan Assessment & Plan (1) Elevated PSA: Code(s): R97.20 - Elevated prostate specific antigen [PSA] Category: Medical (2) Enlarged prostate: Code(s): N40.0 - Benign prostatic hyperplasia without lower urinary tract symptoms Category: Medical (3) Microscopic hematuria: Code(s): R31.29 - Other microscopic hematuria Category: Medical (4) Bladder trabeculation: Code(s): N32.89 - Other specified disorders of bladder Category: Medical Plan In office urinarlysis results reviewed with the patient today; as noted above. Most recent PSA results reviewed with the patient today; as noted above. We did discussed at length potential causes of elevated PSA as well as further treatment options and risks and benefits of these treatment options. All questions were answered. He currently denies any bothersome urinary issues. He reports be happy with current voiding parameters. Continue finasteride and Cialis as discussed and prescribed. Will continue with surveillance monitoring of PSA. Will obtain PSA in 4 months. Follow-up in 4 months with PSA; or sooner with any issues, concerns, and or questions. Orders: Orders AMB Urinalysis Automated Today Z13.9 - Encounter for screening, unspecified PSA,Total (Free>4and<10) Today N32.89 - Other specified disorders of bladder, N40.0 - Benign prostatic hyperplasia without lower urinary tract symptoms, R31.29 - Other microscopic hematuria, R97.20 - Elevated prostate specific antigen [PSA] Urine Cytology Today R31.29 - Other microscopic hematuria Patient Instructions: The patient had an opportunity to ask questions regarding the treatment plan. All questions were answered. Physical exam, labs, and imaging were discussed and reviewed in detail. As well as risks, benefits, and discussion of treatment choices. No major barriers to understanding were identified. The patient expressed understanding and agreement with the above treatment plan. The patient was made aware they should contact our office by phone for worsening of their current condition, the appearance of new symptoms, or with any ques tions or concerns. Compliance is encouraged with any medications and follow up testing that is ordered. It is a privilege to be allowed the opportunity to participate in? your urological care.? Again, if you have any questions or concerns If you have any questions or concerns please do not hesitate to contact me. The office is [phone]. This note is constructed using voice recognition software. While every effort has been made to ensure accuracy stage manager errors may have been included. Yours sincerely, MEL Anderson Coding Level of Care Code Est Pt Level 3 (50671) Complex EM visit Add On G2211 Diagnoses Elevated PSA R97.20 Enlarged prostate N40.0 Microscopic hematuria R31.29 Bladder trabeculation N32.89
== END 2025-08-05 09:04 | disposition home or self-care (01) ==
LOC: HO.HUSH 08:21
PROVIDERS: PCP Nurse Practitioner Family; Visit Provider Nurse Practitioner Family
DX: R97.20 Elevated prostate specific antigen [PSA] (principal); N40.0 Benign prostatic hyperplasia without lower urinary tract symptoms; R31.29 Other microscopic hematuria; N32.89 Other specified disorders of bladder; Z13.9 Encounter for screening, unspecified
CPT/HCPCS: 99213; G2211

== ENCOUNTER 2025-08-25 07:42 | Outpatient (REF) | payer MEDICARE, SELFPAY ==
[2025-08-25 10:11] LABS: MANUAL DIFF FLAG NO
[2025-08-25 10:25] LABS: Hematocrit 38.9 % (42.0-52.0); Hemoglobin 13.2 g/dl (14.0-18.0); Imm Gran Abs Auto 0.05 X10*3/uL (0.00-0.03); Imm Gran Pct Auto 0.7 % (0.0-0.4); Lymphocytes Absolute Auto 2.2 X10*3/uL (1.2-4.9); Mean Corpuscular HGB Conc 33.9 g/dl (31.0-36.0); Mean Corpuscular Hemoglobin 32.7 pg (27.0-33.0); Mean Corpuscular Volume 96.3 fL (80.0-98.0); NRBC Abs Auto 0.000 X10*3/uL (0.0-0.012); NRBC Pct Auto 0.0 /100WBC (0.0-0.2); Platelet Count 193 X10*3/uL (160-400); Red Blood Count 4.04 X10*6/uL (4.60-5.80); Reticulocytes Absolute 0.084 X10*6/uL (0.026-0.095); White Blood Count 7.0 X10*3/uL (4.8-10.8)
[2025-08-25 11:15] LABS: Folate 15.2 ng/mL (> or = 4.0); Vitamin B12 471 pg/mL (200-900)
[2025-08-25 11:17] LABS: Alanine Aminotransferase 41 U/L (0-40); Albumin Level 4.5 g/dL (3.5-5.0); Alkaline Phosphatase 62 U/L (39-117); Anion Gap 13 (12-20); Aspartate Amino Transferase 39 U/L (5-37); Blood Urea Nitrogen 14 mg/dL (9-16); Calcium 9.2 mg/dL (8.4-10.2); Carbon Dioxide 27 mmol/L (22-29); Chloride 102 mmol/L (96-108); Estimated Glomerular Filt Rate > 60; Ferritin 350 ng/mL (20-250); Iron 190 mcg/dL (45-160); Percent Iron Saturation 58 % (15-50); Potassium 4.0 mmol/L (3.3-5.1); Sodium 138 mmol/L (135-145); Total Iron Binding Capacity 326 mcg/dL (228-428); Total Protein 7.6 g/dL (6.5-8.0); Unsaturated Iron Binding 136 ug/dL
[2025-08-27 07:24] LABS: Hematocrit 40.2 % (39.4-51.1); Hemoglobin 13.4 g/dL (13.2-17.1); MCH 33.1 pg (27.0-33.0); MCV 99.3 fL (81.4-101.7); RBC 4.05 Million/uL (4.20-5.80); RDW 12.0 % (11.0-15.0)
== END 2025-08-25 07:43 | disposition home or self-care (01) ==
LOC: HO.HMGCLDS 07:42
PROVIDERS: PCP Nurse Practitioner Family; Visit Provider Nurse Practitioner Family
DX: D64.9 Anemia, unspecified (principal)
CPT/HCPCS: 36415; 80053; 82607; 82728; 82746; 83020; 83540; 83615; 85014; 85018; 85025; 85041; 85045

== ENCOUNTER 2025-09-02 10:04 | Outpatient (AMB) | payer MEDICARE, SELFPAY ==
[2025-09-02 10:19] VITALS: BP 114/80; PULSE 52; RESP 16; O2SAT 99; BMI 28.4
--- NOTE | 2025-09-02 10:19 | MHC.PC.OV ---
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 Required: No Accompanied by: Self / Same As Patient Allergies amlodipine Allergy (Severe, Verified 09/02/25 10:37) swelling Medication List - Last Reconciled 09/02/25 by MYLA RoseP- atorvastatin 10 mg PO BEDTIME finasteride 5 mg PO DAILY 90 days hydrochlorothiazide 12.5 mg PO DAILY levothyroxine 150 mcg PO DAILY lisinopril 20 mg PO DAILY sildenafil 25 mg PO DAILY PRN tadalafil (Cialis) 5 mg PO DAILY 90 days Tobacco use date assessed: 09/02/25 Fall risk assessment: No Falls in past year Last assessed Fall Risk: 09/02/25 Dental Screening Dental Screen Date: 09/02/25 Did you have a dental visit in the last 12 months?: Yes Did you have a dental problem in the last 6 months where you did not have access to dental care?: No Was dental information given to patient?: Patient has dentist HPI 6m F/U HPI Details Chief Complaint The patient presents for a generalized follow-up visit. History of Present Illness The patient is a 70 year old male presenting for a generalized follow-up visit. His hypertension is reported as stable. Recent laboratory results showed an elevated bilirubin, slightly elevated liver enzymes, and an elevated iron level. The patient takes a daily multivitamin that contains iron. He follows up with urology for his PSAs. hx of hep c, though cleared, will cont to monitor viral loads Social History - Substance Use: Takes a daily multivitamin containing iron. Health Maintenance The patient is due for cholesterol testing, which will be ordered with his other labs. He will continue to follow up with urology for PSA monitoring. Review of Systems - General: Denies chest pain, dizziness, or blurred vision. - Respiratory: Denies shortness of breath. - Gastrointestinal: Denies abdominal pain, n/v, weight loss Physical Exam General: Cooperative, healthy appearing, comfortable, no acute distress and well developed Orientation: Patient oriented x3 Limitations: No limitations Head: Normal to inspection Ears: Hearing grossly normal bilaterally Nose: Normal external nose present Face and sinus: Normal facial exam Eyes: Appearance normal, both eyes and all related structures Neck: Normal visual inspection and Yes full ROM Respiratory: Normal respiratory effort and able to speak in complete sentences. Clear to auscultation bilaterally Cardiovascular: Regular rate and rhythm. Normal S1 and S2, no carotid bruits noted GI: Normal to inspection. Soft to palpation and nontender Skin: No rashes or lesions noted Neuro: Patient oriented x3 Extremities: Normal to inspection Results - Labs: Elevated bilirubin, slightly elevated liver enzymes, and elevated iron were noted. Plan 1. Hypertension The patient's hypertension is stable. He denies associated symptoms such as chest pain, shortness of breath, dizziness, or blurred vision. Recent labs will be obtained to monitor his condition. 2. Hyperbilirubinemia And Elevated Liver Enzymes The patient has an elevated bilirubin and slightly elevated liver enzymes. He denies any abdominal pain. An abdominal ultrasound will be ordered to further evaluate these findings. Additional labs related to this will also be ordered. 3. Elevated Iron Level The patient's iron level was noted to be elevated, which may be related to the iron in his daily multivitamin. He will be instructed to stop taking this multivitamin. His iron levels will be rechecked in about one month. Discussion Notes I discussed the patient's lab results with him, specifically the elevated bilirubin, liver enzymes, and iron levels. I explained that we would order follow-up labs and an abdominal ultrasound to investigate the liver findings. I advised him to stop his multivitamin with iron and plan to recheck his iron levels in about a month. Patient Instructions - Stop taking your daily multivitamin that contains iron. - Get new lab work done, including tests for your cholesterol and iron levels. - We will get an abdominal ultrasound to look at your liver. - We will recheck your iron levels in about a month. - Continue to see your urologist for PSA checks. [facility] Medical History Anemia Dyslipidemia Hypothyroid Hepatitis C Hypertension Surgical History Hx of colonoscopy Family History Father No problems noted. Mother Gastric cancer Sister No problems noted. Son No problems noted. Son No problems noted. Daughter No problems noted. Brother No problems noted. Brother No problems noted. Brother No problems noted. Brother No problems noted. Social History Housing: House Alcohol intake: never Patient Tobacco Use Status: Never used Tobacco e-Cigarette/Vaping Use: Never Used Second Hand Smoke Exposure: No service: No Current occupational status: employed Cognitive needs: No Hearing needs: No Vision needs: No Questionnaire PHQ-9 Over the last 2 weeks, how often have you been bothered by any of the following problems? 1. Little interest or pleasure in doing things: not at all 2. Feeling down, depressed, or hopeless: not at all 3. Trouble falling or staying asleep, or sleeping too much: not at all 4. Feeling tired or having little energy: not at all 5. Poor appetite or overeating: not at all 6. Feeling bad about yourself - or that you are a failure or have let yourself or your family down: not at all 7. Trouble concentrating on things, such as reading the newspaper or watching television: not at all 8. Moving or speaking so slowly that other people could have noticed. Or the opposite - being so fidgety or restless that you have been moving around a lot more than usual: not at all 9. Thoughts that you would be better off or of hurting yourself in some way: not at all Total score: 0 Depression Screening Interpretation: Negative Depression Screening Done: Yes 45265 - PHQ-9 Billing: Yes Source: Developed by Drs. Sundar Wright, Natalee Wolfe, Artemio Reynoso and colleagues, with an educational som from [employer]. Thrive Questionnaire Date Thrive assessed: 08/26/25 I am a: Patient What is your living situation today?: I have a steady place to live Within the past 12 months, did the food you bought not last and you didn't have the money to get more?: Never true Within the past 12 months, did you worry whether your food would run out before you got money to buy more?: Never true Do you have trouble paying for medicines?: No Do you have trouble getting transportation to medical appointments?: No Do you have trouble paying your heating and electricity bill?: No Do you have trouble taking care of your child, family member or friend?: No Do you have trouble with day-to-day activities such as bathing, preparing meals, shopping, managing finances, etc.?: No Are you currently unemployed and looking for a job?: No Are you interested in more education?: No Please select the resources that you would like help with: None Currently or been in a relationship where the following occur: No concerns reported THRIVE Score: 0 AUDIT C Alcohol Use Questionnaire (AUDIT-C) 1. How often do you have a drink containing alcohol?: 2-4 times a month Total Score: 2 IGGY-7 AMB Questionnaire IGGY-7 Date IGGY - 7 assessed: 09/02/25 Feeling nervous, anxious, or on edge: 0 = Not at all Not being able to stop or control worryin = Not at all Worrying too much about different things: 0 = Not at all Trouble relaxin = Not at all Being so restless that it is hard to sit still: 0 = Not at all Becoming easily annoyed or irritable: 0 = Not at all Feeling afraid as if something awful might happen: 0 = Not at all Total IGGY-7 score (0-4 normal; 5-9 mild; 10-14 moderate; 15-21 severe): 0 Source: Developed by Drs. Sundar Wright, Natalee Wolfe, Artemio Reynoso and colleagues, with an educational som from [employer]. Physical exam (Primary Care) Vital Signs: Last Vital Signs Pulse 52 09/02/25 10:19 Resp 16 09/02/25 10:19 BP 114/80 09/02/25 10:19 Pulse Ox 99 09/02/25 10:19 Oxygen Delivery Method Room Air 09/02/25 10:19 BMI result Body Mass Index 28.4 Tobacco/Smoking Status: Tobacco use Status Tobacco use date assessed 09/02/25 09/02/25 10:26 Patient Tobacco Use Status Never used Tobacco 09/02/25 10:26 e-Cigarette/Vaping Use Never Used 09/02/25 10:26 PHQ-9: PHQ-9 Score PHQ-9: Total score 0 09/02/25 10:26 Depression Screening Interpretation: Negative Thrive Assessment: Date of Thrive Assessment Date Thrive assessed 08/26/25 09/02/25 10:26 Currently or been in a relationship where the following occur: No concerns reported Coding Level of Care Code Est Pt Level 3 (90121) Diagnoses Hepatitis C B19.20 Hypertension I10 Dyslipidemia E78.5 Elevated ferritin R79.89 Additional Codes PHQ-9 - 15421 - PHQ-9 Billing: Yes ([id number]) Assessment & Plan Assessment & Plan (1) Hepatitis C: Code(s): B19.20 - Unspecified viral hepatitis C without hepatic coma Category: Medical (2) Hypertension: Code(s): I10 - Essential (primary) hypertension Category: Medical (3) Dyslipidemia: Code(s): E78.5 - Hyperlipidemia, unspecified Category: Medical (4) Elevated ferritin: Code(s): R79.89 - Other specified abnormal findings of blood chemistry Category: Medical Plan . Orders: Orders Complete Blood Count Auto Diff Today R7.89 - Other specified abnormal findings of blood chemistry IRON PROFILE Today R7.89 - Other specified abnormal findings of blood chemistry Ferritin Today R79.89 - Other specified abnormal findings of blood chemistry Bilirubin Total Today R17 - Unspecified jaundice Hepatitis C Viral Load Today B19.20 - Unspecified viral hepatitis C without hepatic coma Lipid Panel Today B19.20 - Unspecified viral hepatitis C without hepatic coma, E78.5 - Hyperlipidemia, unspecified, I10 - Essential (primary) hypertension Vitamin D 25-OH Total Today B19.20 - Unspecified viral hepatitis C without hepatic coma, E78.5 - Hyperlipidemia, unspecified, I10 - Essential (primary) hypertension DNA Analysis Hemochromatosis Today R79.89 - Other specified abnormal findings of blood chemistry Bilirubin Direct Today R17 - Unspecified jaundice Haptoglobin Today R17 - Unspecified jaundice US abdomen complete Today R17 - Unspecified jaundice
== END 2025-09-02 11:21 | disposition home or self-care (01) ==
LOC: HO.HMCC 10:04
PROVIDERS: PCP Nurse Practitioner Family; Visit Provider Nurse Practitioner Family
DX: B19.20 Unspecified viral hepatitis C without hepatic coma (principal); I10 Essential (primary) hypertension; E78.5 Hyperlipidemia, unspecified; R79.89 Other specified abnormal findings of blood chemistry

== ENCOUNTER → 2025-09-02 10:04 | Outpatient (BNVA) | payer MEDICARE, SELFPAY | PROVIDERS: PCP Nurse Practitioner Family; Visit Provider Nurse Practitioner Family | DX: R79.89 Other specified abnormal findings of blood chemistry (principal); R17 Unspecified jaundice; B19.20 Unspecified viral hepatitis C without hepatic coma; I10 Essential (primary) hypertension; E78.5 Hyperlipidemia, unspecified; Z13.31 Encounter for screening for depression; Z13.39 Encounter for screening examination for other mental health and behavioral disorders | CPT/HCPCS: 96127; 99212 ==